=== PATIENT | female | born 1945 | race Caucasian/White ===

== ENCOUNTER 2018-05-24 12:15 | Outpatient (REF) | payer MEDICARE, MEDICAID, SELFPAY | END 2018-05-24 12:35 | LOC: NCHCN 12:15 | PROVIDERS: PCP Family Medicine; Visit Provider Family Medicine | DX: N39.0 Urinary tract infection, site not specified (principal); Z87.440 Personal history of urinary (tract) infections | CPT/HCPCS: 87077; 87086; 87186 ==

== ENCOUNTER 2019-02-25 11:23 | Inpatient (IN) | payer MEDICARE, MEDICAID, SELFPAY ==
[2019-02-25] VITALS (53 sets, daily range): BP systolic 83–141; BP diastolic 48–88; PULSE 73–101; RESP 7–30; TEMP 36.5–37.4; O2SAT 90–100
--- NOTE | 2019-02-25 11:27 | ED.GENADUL_ITS ---
Discharge Plan Discharge Details Chief Complaint: GenMedical Admit Date/Time: 02/27/19 15:43 Admit Provider: Jules Rodriguez Attending Provider: Jules Rodriguez Primary Care Provider: Mercedez Vazquez ED Provider: Wilma Mendoza Discharge Instructions Activity:: Activity as Tolerated Activity:: Activity as Tolerated Equipment/Supplies:: No Equipment Needed Diet:: Pureed & Thickened - Same diet as prior to hospitalization Discharge Orders Discharge Orders: Discharge Order (Routine); Ordered 02/28/19 Ordered By: Ger Martino Discharge Data Discharge Date/Time-TO BE ENTERED AT DEPARTURE: 02/25/19 19:01 Medical Decision Making Patient is a 72-year-old 1-year-old female with a history of bipolar, cognitive delay, dysphagia, anxiety, presenting today accompanied by her caregiver who has known her for the past 4 years. She brought in via EMS for chief complaint of angioedema. EMS was contacted around 4:00 this morning at which time the caregivers report the swelling was greater than it is now. However, EMS thought the she does not appear swollen. EMS was then turned out again with the same complaint. The caregiver at this time says that the overall swelling is reported to be down slightly but has been status quo since she is been with the patient at around 630 this morning. She been maintaining her airway. She is drooling but this is baseline for the patient. She typically has a tongue was able to be in her mouth and typically is able to eat normally. Labs reviewed. Patient has mild leukocytosis with a white count of 12.27. CT was reviewed by radiologist: FINDINGS: 1 stable . Patient is here for CT 1year continue with there is marked prominence of the tongue and there is some evidence of the tonsillar and adenoidal tissue. Image quality is degraded by patient's dentition. There is no definite evidence of an abscess. The retropharyngeal soft tissues appear intact. The facial bones are unremarkable. A small retention cyst is noted in the floor of the right maxillary antrum. The paranasal sinuses appear otherwise unremarkable. Degenerative changes involving the cervical spine are identified. IMPRESSION: There is diffuse swelling of the tongue and prominence of the tonsillar and adenoidal tissue is demonstrated. Allowing for poor image quality no abscess or mass is identified. Patient was given Benadryl and Solu-Medrol. Feel that time is come down slightly. She continues to drool. The patient presents with her angioedema and is unclear as to the source of this, admission is appropriate. Will consult with hospitalist. Consulted with the hospitalist who came to evaluate the patient. She is concerned for the patient staying here as the patient may require intubation should her symptoms worsen. Physically will not be able to perform his intubation here and patient need may need tracheostomy. Advised patient should be admitted to an institution that has ENT available. As the olanzapine will need to be stopped, so felt that the patient would benefit from psychiatry admission. I consulted with [facility] who advised I do not have any bed availability for this patient at this time. Then called [facility], awaiting callback. Consulted with Dr. Jacky Mendoza at [facility] who advised that the patient seems to be improving, he does not feel the transfer to their facility is appropriate at this time. We discussed the patient's medication list and he does not feel that these are likely the offending agent. That they were unlikely. He did advise sending if C4 level with concern for possible complement issue. It did advise that we continue with the Benadryl and the steroid taper. This patient is unable to be admitted here and is unable to be safely discharged home, will continue to monitor in the ER with plan to discuss the case once again with Dr. Mendoza in 4 hours. If at that time, improved or symptoms worsen, she will be transferred to their facility. Patient has been in the department 2 hours telemetry has again come down slightly. Has less of a rounded shape. However, continues to protrude out of mild and patient has persistent drooling. Had a lengthy discussion with the patient's guardian. We discussed risk/benefits of transferring the patient. She does not wish to transfer the patient at this point. She feels that with her cognitive delay, this would greatly exacerbate her symptoms are made worse in her current condition. She is requesting patient remain here. We discussed that in the, as have been pointed by hospitalist prior, we do not have availability of ENT, psychiatry, allergy testing or other potentially needed areas of specialty. Patient is already a DNR and the guardian prefers to make her DNI as well. She does not feel that if the patient was to need intubation or potentially a tracheostomy, that the patient will be able to tolerate these procedures well and again, would likely worsen her underlying etiologies. At this point, she would like to continue to treat her angioedema as we have been. Again, the patient continues to appear slightly improved. The guardian is aware that there remains a potential that she could begin to decline and that we do not have specialty care here to be able to treat this worsening condition. She continues to want admission here. Seems to be fully aware of the risk. Patient is DNR/DNI. Consult with Dr. Rodriguez who agrees to admission for continued monitoring of the patient's angioedema. Advised re-dosing the patient with the Solu-Medrol at 60 mg every 6. This order has been placed. We will continue to hold off on the Benadryl as the patient continues to be sleepy and I am concerned that this may put her at risk for increased respiratory depression. HPI General Mode of arrival: EMS . Date/Time Provider Initiated Documentation: 02/25/19 11:27 . Limitations to Documentation: altered mental status (hx of cognitive impairment) . Information obtained by: family (home care provider and cousin who is DPOA) and RN notes reviewed . HPI Narrative: Patient is 73-year-old female with history of cognitive impairment, bipolar, brought in via EMS with chief complaint of tongue swelling. Home care provider reports that this is first noted around 4:00 this morning by previous care provider. He denies any recent change in medications. No new friends there were. Reports that yesterday she was in a manic state which involved her largely laying around the house. The report that she is unable to get any substances that she may have ingested. They do not believe that she is single any trauma or bit her tongue. She is never had an episode like this before. Patient is not on any LOLLY inhibitors or high risk medications to angioedema. They have not noted having any difficulty breathing. If not tried to give her anything p.o. since the onset of her symptoms. Have not noted any rash, wheezing or stridor. They do report that she snores at baseline but this is unchanged. Related Data Home Medications Medication Instructions Recorded Confirmed cholecalciferol (vitamin D3) 400 unit PO BID 11/01/13 02/25/19 [Vitamin D3] lorazepam 4 mg PO HS 11/01/13 02/25/19 multivitamin [Daily Multi-Vitamin] 1 ea PO DAILY 11/01/13 02/25/19 omega 9-vwb-bls-fish oil 3 cap PO BID 11/01/13 02/25/19 polyethylene glycol 3350 [GlycoLax] 1 bot PERFUSION BID 11/01/13 02/25/19 Diafoods Thick-It 1 ea PO 6X/DAY 01/02/17 02/25/19 famotidine 20 mg PO DAILY 01/02/17 02/25/19 calcium polycarbophil [FiberCon] 625 mg PO DAILY 02/25/19 02/25/19 prednisone 10 mg PO DAILY #10 tab 02/28/19 Previous Rx's Medication Instructions Recorded prednisone 10 mg PO DAILY #10 tab 02/28/19 Allergies Allergy/AdvReac Type Severity Reaction Status Date / Time carbamazepine [From Tegretol] Allergy Unverified 02/25/19 11:29 divalproex sodium Allergy Unverified 02/25/19 11:29 [From Depakote] haloperidol [From Haldol] Allergy Unverified 02/25/19 11:29 lithium Allergy Unverified 02/25/19 11:29 Penicillins Allergy Unverified 02/25/19 11:29 verapamil Allergy Unverified 02/25/19 11:29 Review of Systems Review of Systems ROS Unobtainable: Unobtainable due to mental condition [facility] Medical History Aspiration pneumonia Bipolar disorder Cognitive developmental delay Dysphagia Dysuria Hx of recurrent urinary tract infection Seborrheic keratosis Surgical History egd, general endotracheal anesthesia (01/06/17) Social History Smoking/Tobacco Use Status: Never Drug use: Never Exam Const General: cooperative, comfortable, no acute distress and well developed Nutritional Appearance: average body habitus and well nourished Orientation: alert, awake and not oriented x3 (Patient is nonverbal) [facility] Head: normal to inspection, normocephalic and atraumatic Ears: hearing grossly normal bilaterally, external ears normal and TM's normal bilaterally General nose exam: external nose normal and nares normal Face and sinus: normal facial exam, sinuses nontender and face symmetric Mouth: oral mucosae normal, lip normal, oropharynx normal, moist mucous membranes and tongue abnormal (Patient has angioedema with tongue protruding from her mouth.) Teeth and gingiva: dentition normal (Do not see any evidence infection.) Throat: posterior oropharynx abnormal (Unable to see secondary to tongue swelling) Eyes General: appearance normal, both eyes and all related structures Neck Neck: full ROM, no lymphadenopathy and no meningeal signs Neck images: 1. Erythematous streak. No induration, fluctuance, no evidence of pain with pa lpation Resp Effort & Inspection: normal respiratory effort, able to speak in complete sentences and no respiratory distress Auscultation: clear to auscultation bilaterally, no rales, no rhonchi and no wheezes Cardio Rate: regular rate Rhythm: regular rhythm Heart Sounds: S1 normal and S2 normal Skin General skin exam: no rashes or lesions noted Neuro General: alert and awake Motor: tone not normal throughout (Muscle wasting is noted particular in lower extremities) Extrem General: no joint enlargement, abnormal gait (Patient is unable to ambulate at baseline), no calf tenderness bilaterally, no edema and muscle atrophy
--- NOTE | 2019-02-25 11:29 | DI.CT_ITS ---
EXAM: CT FACIAL W CLINICAL HISTORY: right sided streaking, angioedema, patient nonverbal. TECHNIQUE: Facial bone CT was carried out with an intravenous injection of 100 cc of Omnipaque 350. COMPARISON: No exams were available for comparison FINDINGS: There is marked prominence of the tongue and there is some evidence of the tonsillar and adenoidal ti ssue. Image quality is degraded by patient's dentition. There is no definite evidence of an abscess . The retropharyngeal soft tissues appear intact. The facial bones are unremarkable. A small retent ion cyst is noted in the floor of the right maxillary antrum. The paranasal sinuses appear otherwise unremarkable. Degenerative changes involving the cervical spine are identified. IMPRESSION: There is diffuse swelling of the tongue and prominence of the tonsillar and adenoidal tissue is demon strated. Allowing for poor image quality no abscess or mass is identified.
[2019-02-25] MEDS: Normal Saline 1,000 ML 1000 ML IV (11:56)
[2019-02-25] MEDS: diphenhydrAMINE 50 MG/ML VIAL 25 MG IVP (12:06)
[2019-02-25 12:07] LABS: Abs Immature Grans 0.03 k/cumm (0.0-0.09); Absolute Basophil Count 0.01 k/cumm (0.0-0.2); Absolute Lymphocyte Count 0.99 k/cumm (1.2-3.4); Absolute Monocyte Count 0.74 k/cumm (0.11-0.7); Basophils % 0.1; Eosinophils % 0.8; HCT 41.9 % (36.0-46.0); HGB 13.8 g/dL (12.0-15.5); Immature Grans % 0.2; Lymphocytes % 8.1; Mean Corp. HGB Concentration 32.9 g/dL (32.0-36.0); Mean Corpuscular Hemoglobin 32.2 pg (27.0-33.0); Mean Corpuscular Volume 97.7 fL (80-95); Mean Platelet Volume 11.2 fL (8.0-11.0); Neutrophils % 84.8; Platelet Count 293 x1000/uL (130-400); RBC 4.29 m/cumm (4.00-5.20); White Blood Cell Count 12.27 k/cumm (4.4-10.8)
[2019-02-25] MEDS: methylPREDNISolone SUCC 125 MG VIAL IVP (12:08)
[2019-02-25] MEDS: Normal Saline Flush 10 ML SYR IVP ×2 (12:11→21:26)
[2019-02-25 12:28] LABS: ALT 27 U/L (14-59); AST 44 U/L (15-37); Albumin 3.3 g/dL (3.4-5.0); Alkaline Phosphatase 145 U/L (46-116); Anion Gap 11.2 mmol/L (3-11); BUN 27 mg/dL (7-18); CO2 23.8 mmol/L (21.0-32.0); Chloride 105 mmol/L (98-107); Glucose 119 mg/dL (70-100); Potassium 4.2 mmol/L (3.5-5.1); Sodium 140 mmol/L (136-145); Total Protein 7.5 g/dL (6.4-8.2)
[2019-02-25 12:32] LABS: Lactate 1.1 mmol/L (0.6-1.4)
[2019-02-25 12:52] LABS: Calcium 9.5 mg/dL (8.5-10.1)
--- NOTE | 2019-02-25 19:09 | W.PM.HP.N ---
Date of service: 02/25/19 Time of Service: 19:09 Assessment and Plan Assessment and plan (1) Angioedema: Status: Acute Assessment and plan: I will give one time dose of epinephrine 0.3 mg and continue w/ benadryl at lower dose and continue w/ iv H2 blockers as well as iv corticosteroids. we will keep racemic epinephrine aerosol available should she develope stridor. she remains at high risk for airway compromise. The ER gave me the impression that she was acceptable for admission to med/surg; she should be more closely followed in the ICU. However, her cousin, Pinky Gómez, did indicate to me that she would not want any heroics done to save her in the event of an airway emergency, i.e. no cricothyrotomy or tracheostomy. Qualifiers: Encounter type: initial encounter Qualified Code(s): T78.3XXA - Angioneurotic edema, initial encounter History of Present Illness History of Present Illness Chief Complaint: angioedema Narrative: 73-year-old female who is cognitively impaired due to developmental delay at who lives in an assisted living center in [facility]. This morning the assisted living nursing home assistant administrator called the patient's guardian who is also the patient's cousin, Pinky Gómez, to notify her that around 430 this morning the patient developed acute swelling of her tongue. EMS was called to evaluate the patient but they felt that there was no acute emergency and that this did not necessitate transport to the hospital. However by 8 AM her tongue continue to swell to the point that was protruding out of her mouth and Verenice Platt, nursing home assistant administrator at [place] called the patient's cousin again to report that there is no improvement and in fact there was worsening of her edema and so they called the patient's primary care provider at [facility]. By 830 a physician from [facility] came to evaluate the patient and called EMS. Upon arrival to the emergency department she was noted to have gross edema of her tongue to the point is protruding out of her mouth and the patient was drooling and unable to handle her oral secretions. There was no mention of stridor or airway compromise and in fact it was felt that she was maintaining her airway. ER personnel did routine labs as well as a CT scan of the face. CT scan of the face showed diffuse swelling the tongue and prominence of the tonsillar and adenoidal tissue but poor quality image with no evidence for abscess or mass. JAKE Yuen in the emergency room spoke with Dr.Yelena Metcalf, day hospitalist who came down the emergency room and evaluate the patient and recommend that the patient be transferred to tertiary care center where ENT would be available. Concern is that if the patient had a compromised airway and needed emergent airway control the patient would not be able to be intubated and would need an emergent cricothyrotomy and subsequent tracheotomy. JAKE Yuen made phone calls at [facility] who had no beds and could not accept the patient in a call to [facility] where Dr. Jacky Mendoza was consulted and by the time the patient's case was discussed the patient's tongue edema was improving. He did not feel the need for transfer at this time. He reviewed the patient's medication list and did not feel likely that her current medications were offending agents. He did recommend a C4 complement level be sent off. Treatment the emergency department included Solu-Medrol 125 mg IV along with a normal saline bolus and thousand milliliters as well as diphenhydramine 25 mg IV. The diphenhydramine made the patient excessively sleepy. Further diphenhydramine was discontinued in the emergency department. She was given 1 additional dose of Solu-Medrol 60 mg IV before being admitted to the medical/surgical floor. The patient's guardian and cousin discussed the case with Wilma Grove and indicated that the patient would only want to be kept comfortable and that they would not want to pursue a tracheotomy and therefore the patient's cousin requested that the patient be kept here at [facility]. Review of Systems Review of Systems ROS Unobtainable: Unobtainable due to mental condition [facility] Medical History Aspiration pneumonia Bipolar disorder Cognitive developmental delay Dysphagia Dysuria Hx of recurrent urinary tract infection Seborrheic keratosis Surgical History egd, general endotracheal anesthesia (01/06/17) Social History Smoking/Tobacco Use Status: Never Drug use: Never Meds Home Medications and Allergies Home Medications Medication Instructions Recorded Confirmed Type cholecalciferol (vitamin D3) 400 unit PO BID 11/01/13 02/25/19 History [Vitamin D3] lorazepam 4 mg PO HS 11/01/13 02/25/19 History multivitamin [Daily Multi-Vitamin] 1 ea PO DAILY 11/01/13 02/25/19 History omega 0-wgx-qye-fish oil 3 cap PO BID 11/01/13 02/25/19 History polyethylene glycol 3350 [GlycoLax] 1 bot PERFUSION BID 11/01/13 02/25/19 History sulfamethoxazole-trimethoprim 1 ea PO DAILY 11/01/13 02/25/19 History [Bactrim] Diafoods Thick-It 1 ea PO 6X/DAY 01/02/17 02/25/19 History famotidine 20 mg PO DAILY 01/02/17 02/25/19 History olanzapine 10 mg PO DAILY 01/06/17 02/25/19 History sucralfate [Carafate Suspension] 1 gm PO TID #900 ml 01/06/17 02/25/19 Rx calcium polycarbophil [FiberCon] 625 mg PO DAILY 02/25/19 02/25/19 History pantoprazole 20 mg PO DAILY 02/25/19 02/25/19 History sulfamethoxazole-trimethoprim 1 tab PO DAILY 02/25/19 02/25/19 History [Bactrim] Allergies Allergy/AdvReac Type Severity Reaction Status Date / Time carbamazepine [From Tegretol] Allergy Unverified 02/25/19 11:29 divalproex sodium Allergy Unverified 02/25/19 11:29 [From Depakote] haloperidol [From Haldol] Allergy Unverified 02/25/19 11:29 lithium Allergy Unverified 02/25/19 11:29 Penicillins Allergy Unverified 02/25/19 11:29 verapamil Allergy Unverified 02/25/19 11:29 Exam Const General: other (Developmentally delayed adult who at her baseline is nonverbal) Orientation: alert, awake and not oriented x3 Limitations: behavioral limitations and language barrier [facility] Head: normal to inspection, normocephalic and atraumatic Face and sinus: edema bilaterally upper lip and lower lip Mouth: drooling, lip abnormal and tongue abnormal elevated and edematous (protruding out of mouth to her incisors) Throat: other (Malampatti class 4, unable to visualize posterior pharynx) Eyes General: dysmorphic (wide set eyes) Neck Neck: normal visual inspection, full ROM, no lymphadenopathy, no meningeal signs, trachea midline, supple and no JVD Thyroid: thyroid normal Lymphatic: no lymphadenopathy noted Resp Effort & Inspection: normal respiratory effort, no audible wheezes and no stridor Auscultation: clear to auscultation bilaterally Cardio Jugular venous pressure: no JVD Palpation: normal PMI Rate: regular rate Rhythm: regular rhythm Heart Sounds: S1 normal and S2 normal GI Inspection: normal to inspection Palpation: soft, no hepatosplenomegaly and nontender Percussion: normal to percussion Auscultation: normal bowel sounds Skin Rashes: rashes noted right cheek borders irregular and color red Extrem General: normal to inspection, full ROM, normal capillary refill, no clubbing, cyanosis or edema, no pedal edema and no calf tenderness Psych Appearance: disheveled Mental Status: other (nonverbal, looks around room but does not focus attention) Speech and Movement: other (aphasic) Mood: anxious mood and other (nonverbal, looks around room but does not focus attention) Results Imaging Additional studies: Patient Name: JOSEPH SIMON #: [id number]: ER Ordering Provider: Wilma Mendoza #: [id number]: REG ER Primary Care Provider: Alfred Vazquez of Exam: 02/25/19Sex: F : 7Age: 73 Exam(s) a CT:CT facial w EXAM: CT FACIAL W CLINICAL HISTORY: right sided streaking, angioedema, patient nonverbal. TECHNIQUE: Facial bone CT was carried out with an intravenous injection of 100 cc of Omnipaque 350. COMPARISON: No exams were available for comparison FINDINGS: There is marked prominence of the tongue and there is some evidence of the tonsillar and adenoidal tissue. Image quality is degraded by patient's dentition. There is no definite evidence of an abscess. The retropharyngeal soft tissues appear intact. The facial bones are unremarkable. A small retention cyst is noted in the floor of the right maxillary antrum. The paranasal sinuses appear otherwise unremarkable. Degenerative changes involving the cervical spine are identified. IMPRESSION: There is diffuse swelling of the tongue and prominence of the tonsillar and adenoidal tissue is demonstrated. Allowing for poor image quality no abscess or mass is identified. Labs Result diagrams: 02/25/19 11:45 02/25/19 11:45 Labs: Laboratory Results - last 24 hr 02/25/19 02/25/19 02/25/19 11:45 11:45 12:28 WBC 12.27 H RBC 4.29 Hgb 13.8 Hct 41.9 MCV 97.7 H MCH 32.2 MCHC 32.9 RDW 14.0 Plt Count 293 MPV 11.2 H Immature Gran % 0.2 Neutrophils % 84.8 Lymphocytes % 8.1 Monocytes % 6.0 Eosinophils % 0.8 Basophils % 0.1 Absolute Neutrophils 10.40 H Absolute Lymphocytes 0.99 L Absolute Monocytes 0.74 H Absolute Eosinophils 0.10 Absolute Basophils 0.01 Sodium 140 Potassium 4.2 Chloride 105 Carbon Dioxide 23.8 Anion Gap 11.2 H BUN 27 H Creatinine 0.80 Estimated GFR/1.73 m2 >= 60.00 Glucose 119 H Lactate 1.1 Calcium 9.5 Total Bilirubin 1.0 AST 44 H ALT 27 Alkaline Phosphatase 145 H Total Protein 7.5 Albumin 3.3 L Last Vital Signs Temp 37.0 C 02/25/19 11:24 Pulse 85 02/25/19 18:31 Resp 18 02/25/19 18:31 BP 102/68 02/25/19 18:31 Pulse Ox 94 L 02/25/19 18:31
[2019-02-25] MEDS: diphenhydrAMINE 50 MG/ML VIAL 12.5 MG IVP (21:25)
[2019-02-25] MEDS: EPINEPHrine 0.3 MG KIT IM (21:33)
[2019-02-25] MEDS: FAMOTIDINE 20 MG/50 ML BAG 200 MG IVPB (23:07)
[2019-02-25] MEDS: Enoxaparin 40 MG/0.4 ML SYR SC (23:07)
[2019-02-25] MEDS: Normal Saline 1,000 ML 50 ML IV (23:30)
[2019-02-25] MEDS: methylPREDNISolone SUCC 125 MG VIAL 60 MG IVP (23:33)
[2019-02-26] VITALS (29 sets, daily range): BP systolic 91–119; BP diastolic 45–98; PULSE 66–99; RESP 14–26; TEMP 36.6–37.1; O2SAT 90–99
[2019-02-26] MEDS: methylPREDNISolone SUCC 125 MG VIAL 60 MG IVP ×4 (06:22→23:24)
[2019-02-26 06:57] LABS: Abs Immature Grans 0.04 k/cumm (0.0-0.09); Absolute Lymphocyte Count 0.68 k/cumm (1.2-3.4); Absolute Monocyte Count 0.24 k/cumm (0.11-0.7); Absolute Neutrophil Count 12.44 k/cumm (1.2-6.7); HCT 42.7 % (36.0-46.0); HGB 13.6 g/dL (12.0-15.5); Immature Grans % 0.3; Lymphocytes % 5.1; Mean Corp. HGB Concentration 31.9 g/dL (32.0-36.0); Mean Corpuscular Hemoglobin 31.6 pg (27.0-33.0); Mean Corpuscular Volume 99.3 fL (80-95); Monocytes % 1.8; Neutrophils % 92.8; Platelet Count 267 x1000/uL (130-400); RBC Distribution Width 14.2 % (11.7-14.6)
[2019-02-26 07:06] LABS: Anion Gap 10.8 mmol/L (3-11); BUN 30 mg/dL (7-18); CO2 23.2 mmol/L (21.0-32.0); CREATININE 0.79 mg/dL (0.55-1.02); Calcium 9.3 mg/dL (8.5-10.1); Chloride 111 mmol/L (98-107); Glucose 146 mg/dL (70-100); Potassium 3.8 mmol/L (3.5-5.1); Sodium 145 mmol/L (136-145)
[2019-02-26] MEDS: diphenhydrAMINE 50 MG/ML VIAL 12.5 MG IVP (07:55)
[2019-02-26] MEDS: FAMOTIDINE 20 MG/50 ML BAG 200 MG IVPB ×2 (07:56→20:59)
[2019-02-26] MEDS: Normal Saline Flush 10 ML SYR IVP ×3 (07:56→23:25)
[2019-02-26] MEDS: POTASSIUM CHLORIDE 20 MEQ/100 ML BAG 50 MEQ IVPB (11:13)
--- NOTE | 2019-02-26 11:31 | PHARADMIT ---
Addendum entered by Christiano Mac III 02/27/19 14:30: Pharmacy Note Subjective Angioedema stablizing, patient dehydrated (Na-150) IV fluids started. Objective BP-98/51 Na-150 Other Labs WNL Assessment Zyprexa on hold as possible culprit for ADR as is the Bactrim. to taper steroids. Plan Plan was to discharge home once dehydration resolved. Original Note: Admission Pharmacy Clinical Review ANGIOEDEMA, (may be ADR to Bactrim or Zyprexa)) Code Status DNR/DNI Current Weight Wgt-65.1 kg Renally Cleared and Narrow Therapeutic Index Meds CrCl~60.38 mL/min Meds-OK QTc Value / Action Taken QTc-410 (na) BP Control, Fever BP-117/98 Tmax-36.6C Electrolytes reviewed Na-145 K+3.8 DVT Prophylaxis Lovenox Opiate Usage / Scheduled Bowel Regimen Ordered No No (NPO Swolen tongue) Plt/SCr for Heparin / Enoxaparin P:ts-267 SCr-0.79 INR for Warfarin na H/H stable, WBC/Bands H&H- 13.6/42.7 WBC-13.4 Antibiotic appropriateness none Cultures and Sensitivities none Surgical ABX d/c within 24 hr na DM control / Insulin Dosing BG-146 Heart Failure (Check EF%) (LOLLY's, B-Block, Diuretics) NA IV to PO Switch No Home Meds Reviewed Yes Home Meds Not Ordered [place]-3, Carafate, Miralax, Protonix, Zyprexa, M-Vites Lotazepam, Vit-D, FiberCon Bactrim Comments
--- NOTE | 2019-02-26 12:09 | PGE_ITS ---
Date of Service Date of service: 02/26/19 Time of Service: 12:09 Assessment and Plan Assessment and plan (1) Angioedema: Status: Acute Assessment and plan: Appears to be stabilizing and potentially mildly improved. - Patient has received a dose of epinephrine, and will be continued on combination H1 and H2 boogie, and IV steroids. - Also consider racemic nebulized epinephrine on a as needed basis. - Unsure of the etiology for patient's symptoms, but potentially drug-induced in the setting of olanzapine, Bactrim, and PPI use. All of these medications remain on hold for the time being. - Patient has a history of aspiration pneumonia in the past - continue aggressive suctioning of secretions and aspiration precautions aggressively. - The case was apparently discussed with patient's guardian (her cousin) in the ED. Decision was made that in case of worsening symptoms the patient would only want to be kept comfortable, and that they would not want to pursue a tracheotomy or any invasive form of intervention. She remains DNR/DNI. Qualifiers: Encounter type: initial encounter Qualified Code(s): T78.3XXA - Angioneurotic edema, initial encounter (2) Cognitive developmental delay: Status: None Assessment and plan: History of cognitive and developmental delay, as well as a diagnosis of bipolar disorder, chronically maintained on daily olanzapine and nightly lorazepam. ?Olanzapine remains on hold as potential culprit for angioedema. ?We will reinitiate nightly benzo therapy to avoid withdrawal symptoms in elderly woman on chronic lorazepam. (3) Hx of recurrent urinary tract infection: Status: None Assessment and plan: On chronic prophylactic TMP?SMX, currently on hold as above. (4) DVT prophylaxis: Status: Acute Assessment and plan: SC enoxaparin. (5) Advance directive on file: Status: Acute Assessment and plan: DNR/DNI. Subjective Subjective Interval history since last seen: 73-year-old woman with a prior history of developmental delay since , admitted from [facility] Emergency Department on 02/25 with a diagnosis of Angioedema. Ms. Chris has a prior history of Cognitive impairment and Developmental Delay since , living currently in an assisted care residence in [facility]. She was noted very early on the morning of admission to have developed and acutely swollen tongue, and per instructions from her guardian EMS was called. However, as her symptoms were not at that time severe she was not transported to the ED. However, by 8am her tongue continued to swell, protruding from her mouth, and with concurrent evidence of 'drooling' she was evaluated by a physician from [facility], and transported acutely to the ED via EMS. Initial evaluation revealed gross swelling of the tongue, and inability to control her secretions. The patient's airway however was not compromised. Subsequent CT showed diffuse swelling of the tongue, and prominence of the tonsillar and adenoidal tissue, without mention of mass or abscess. Initially attempted to transfer patient due to the preference of the hospitalist, Ms. Chris was not accepted in transfer at [facility], and patient's family did not feel that she should be sent elsewhere. She was treated in the ED with high dose steroids, IVFs, and antihystamine therapy, and referred for admission for further evaluation and treatment. This morning Ms. Chris is reportedly improved, but with continued and significant tongue swelling, with protuberance of the tongue from the oral cavity. No overnight events reported. Remains afebrile. Exam Narrative Exam Narrative: General: Patient is awake, baseline nonverbal status noted. Neck: Supple HEENT: Noted edema of the upper and lower lips, with noted mild drooling of saliva, and an edematous tongue protruding out of the mouth. CV: Regular, nontachycardic, S1S2, No rubs, murmurs, or gallops. Pulmonary: Clear to auscultation bilaterally, no crackles, wheezing, or rhonchi Abdomen: + Bowel Sounds, soft, nontender, nondistended Vascular: No lower extremity edema Psych: Normal mood and affect. Objective Objective Clinical Data: Abnormal lab results 02/25/19 02/26/19 02/26/19 Range/Units 11:45 06:18 06:18 WBC 13.40 H (4.4-10.8) k/cumm MCV 99.3 H (80-95) fL MCHC 31.9 L (32.0-36.0) g/dL Absolute Neutrophils 12.44 H (1.2-6.7) k/cumm Absolute Lymphocytes 0.68 L (1.2-3.4) k/cumm Chloride 111 H (98-107) mmol/L Anion Gap 11.2 H (3-11) mmol/L BUN 27 H 30 H (7-18) mg/dL Glucose 119 H 146 H (70-100) mg/dL AST 44 H (15-37) U/L Alkaline Phosphatase 145 H (46-116) U/L Albumin 3.3 L (3.4-5.0) g/dL Vital Signs Temperature 36.6 C 02/26/19 08:00 Temperature Source Temporal Artery Scan 02/26/19 08:00 Pulse 85 02/26/19 08:00 Pulse Rhythm Regular 02/25/19 19:21 Pulse 84 02/26/19 08:00 Respiratory Rate 19 02/26/19 08:00 Respiratory Effort Non-Labored 02/26/19 08:00 Respiratory Depth Normal 02/26/19 08:00 Respiratory Pattern Normal 02/26/19 08:00 Blood Pressure 117/98 H 02/26/19 08:00 Blood Pressure Mean 103 02/26/19 08:00 Blood Pressure Position Right Lateral 02/26/19 08:00 Pulse Oximetry 98 02/26/19 08:00 Oxygen Delivery Method Room Air 02/26/19 08:00 Oxygen Flow Rate 0 02/26/19 08:00 Pain Level 0 02/26/19 03:15 Intake & Output 02/25/19 02/26/19 02/26/19 23:59 11:59 23:59 Intake Total 50 / 50 50 / 50 Balance 50 / 50 50 / 50 Weight 66.9 kg 65.1 kg Intake: IV 50 / 50 50 / 50 Other: Comment pt incontinent of urine Diaper on. Stool Occult Blood Negative Stool Size Moderate Stool Characteristics Formed Brown Voiding Methods Diaper Diaper Laboratory Results WBC 13.40 k/cumm (4.4-10.8) H 02/26/19 06:18 RBC 4.30 m/cumm (4.00-5.20) 02/26/19 06:18 Hgb 13.6 g/dL (12.0-15.5) 02/26/19 06:18 Hct 42.7 % (36.0-46.0) 02/26/19 06:18 MCV 99.3 fL (80-95) H 02/26/19 06:18 MCH 31.6 pg (27.0-33.0) 02/26/19 06:18 MCHC 31.9 g/dL (32.0-36.0) L 02/26/19 06:18 RDW 14.2 % (11.7-14.6) 02/26/19 06:18 Plt Count 267 x1000/uL (130-400) 02/26/19 06:18 MPV 11.0 fL (8.0-11.0) 02/26/19 06:18 Immature Gran % 0.3 02/26/19 06:18 Neutrophils % 92.8 02/26/19 06:18 Lymphocytes % 5.1 02/26/19 06:18 Monocytes % 1.8 02/26/19 06:18 Eosinophils % 0.0 02/26/19 06:18 Basophils % 0.0 02/26/19 06:18 Absolute Neutrophils 12.44 k/cumm (1.2-6.7) H 02/26/19 06:18 Absolute Lymphocytes 0.68 k/cumm (1.2-3.4) L 02/26/19 06:18 Absolute Monocytes 0.24 k/cumm (0.11-0.7) 02/26/19 06:18 Absolute Eosinophils 0.00 k/cumm (0.0-0.7) 02/26/19 06:18 Absolute Basophils 0.00 k/cumm (0.0-0.2) 02/26/19 06:18 Sodium 145 mmol/L (136-145) 02/26/19 06:18 Potassium 3.8 mmol/L (3.5-5.1) 02/26/19 06:18 Chloride 111 mmol/L (98-107) H 02/26/19 06:18 Carbon Dioxide 23.2 mmol/L (21.0-32.0) 02/26/19 06:18 Anion Gap 10.8 mmol/L (3-11) 02/26/19 06:18 BUN 30 mg/dL (7-18) H 02/26/19 06:18 Creatinine 0.79 mg/dL (0.55-1.02) 02/26/19 06:18 Estimated GFR/1.73 m2 >= 60.00 (mL/min/1.73m2) 02/26/19 06:18 Glucose 146 mg/dL (70-100) H 02/26/19 06:18 Lactate 1.1 mmol/L (0.6-1.4) 02/25/19 12:28 Calcium 9.3 mg/dL (8.5-10.1) 02/26/19 06:18 Total Bilirubin 1.0 mg/dL (0.2-1.0) 02/25/19 11:45 AST 44 U/L (15-37) H 02/25/19 11:45 ALT 27 U/L (14-59) 02/25/19 11:45 Alkaline Phosphatase 145 U/L (46-116) H 02/25/19 11:45 Total Protein 7.5 g/dL (6.4-8.2) 02/25/19 11:45 Albumin 3.3 g/dL (3.4-5.0) L 02/25/19 11:45
--- NOTE | 2019-02-26 16:37 | PDOC.CMIN ---
- If Service Date Differs Date of service: 02/26/19 Time of Service: 16:37 Care Management Initial Assess REASON FOR HOSPITALIZATION:: Angioedema PAST MEDICAL HISTORY/PAST SURGICAL HISTORY:: Medical History : Aspiration pneumonia. Bipolar disorder. Cognitive developmental delay. Dysphagia. Dysuria. Hx of recurrent urinary tract infection. Seborrheic keratosis. Surgical History: egd, general endotracheal anesthesia (01/06/17) PREVIOUS FUNCTIONAL STATUS/SOCIAL/FAMILY SUPPORTS:: Laisha lives at [facility] [place] [facility], in [place], [place] She is cognitively impaired and has a guardian who is also her cousin ( Pinky Gómez [phone]). Laisha requires total care. She is able to get OOB with max 2 assist, and sit in a chair. In addition to Pinky, Laisha has several other cousins. Pinky's son Aakash Gómez is co-guardian. All of her cousins are very supportive. CURRENT FUNCTIONAL STATUS:: Laisha was lying in bed when CM met with her. She appeared comfortable and her tongue was not visibly protruding at the time, indicating improvement snce admission. Laisha is non-verbal so no discussion with her was possible. Laisha's guardian Pinky came to see her in the fternoon and CM met with her to learn a bit more about Laisha and her needs and abilities. Pinky stated that the care at [facility] is excellent and that all of Toms need are being met. She did strate that she does not want any invasive procedures or a tracheostomy since Laisha would not understand and it would frighten her. The goal of her care is to be kept comfortable. ADVANCE DIRECTIVES:: none Has patient been provided with information about the portal?: No Did the patient sign up for the portal?: No CODE STATUS:: DNR/DNI INSURANCE COVERAGE / FINANCIAL ISSUES:: Medicare. Medicaid CURRENT HOME/COMMUNITY SERVICES/EQUIPMENT:: Lives in an assisted living center PRIMARY CARE PHYSICIAN:: Mercedez Vazquez PATIENT/FAMILY EDUCATION NEEDS:: discharge plan, limitations, follow up plan, Ask Me Three. TRANSPORTATION:: Laisha will be transported by amulance, coordinated by CM, when discharged PLAN:: Laisha will return to [place] when medically ready. She will transport via ambulance coordinated by CM. CM will continue to support patient, and family.
[2019-02-26] MEDS: Enoxaparin 40 MG/0.4 ML SYR SC (20:59)
[2019-02-26] MEDS: diphenhydrAMINE 50 MG/ML VIAL 25 MG IVP (21:09)
[2019-02-26] MEDS: LORazepam 2 MG/ML VIAL IVP (21:09)
[2019-02-27] VITALS (32 sets, daily range): BP systolic 76–122; BP diastolic 44–71; PULSE 57–89; RESP 13–23; TEMP 36.5–37.6; O2SAT 91–98
[2019-02-27] MEDS: Normal Saline 1,000 ML 75 ML IV (02:18)
[2019-02-27] MEDS: methylPREDNISolone SUCC 125 MG VIAL 60 MG IVP ×2 (05:32→12:01)
[2019-02-27 06:50] LABS: Abs Immature Grans 0.04 k/cumm (0.0-0.09); Absolute Lymphocyte Count 0.77 k/cumm (1.2-3.4); Absolute Monocyte Count 0.73 k/cumm (0.11-0.7); HCT 38.9 % (36.0-46.0); HGB 12.3 g/dL (12.0-15.5); Immature Grans % 0.3; Lymphocytes % 6.3; Mean Corp. HGB Concentration 31.6 g/dL (32.0-36.0); Mean Corpuscular Hemoglobin 31.9 pg (27.0-33.0); Mean Corpuscular Volume 100.8 fL (80-95); Mean Platelet Volume 10.8 fL (8.0-11.0); Neutrophils % 87.4; Platelet Count 248 x1000/uL (130-400); RBC 3.86 m/cumm (4.00-5.20); RBC Distribution Width 14.4 % (11.7-14.6); White Blood Cell Count 12.17 k/cumm (4.4-10.8)
[2019-02-27 06:54] LABS: Absolute Neutrophil Count 10.64 k/cumm (1.2-6.7)
[2019-02-27 07:03] LABS: Anion Gap 9.9 mmol/L (3-11); BUN 44 mg/dL (7-18); CO2 23.1 mmol/L (21.0-32.0); CREATININE 0.79 mg/dL (0.55-1.02); Calcium 9.1 mg/dL (8.5-10.1); Chloride 117 mmol/L (98-107); Glucose 165 mg/dL (70-100); Magnesium 2.3 mg/dL (1.8-2.4); Potassium 4.2 mmol/L (3.5-5.1); Sodium 150 mmol/L (136-145)
[2019-02-27] MEDS: FAMOTIDINE 20 MG/50 ML BAG 200 MG IVPB (07:54)
[2019-02-27] MEDS: Normal Saline 1,000 ML 150 ML IV (12:23)
[2019-02-27 12:39] LABS: Sodium 150 mmol/L (136-145)
[2019-02-27] MEDS: SODIUM CHLORIDE 0.45% 1,000 ML 150 ML IV ×2 (14:50→21:02)
--- NOTE | 2019-02-27 15:23 | W.PM.PROGNOT ---
Date of Service Date of service: 02/27/19 Time of Service: 15:27 Assessment and Plan Assessment and plan (1) Angioedema: Status: Acute Assessment and plan: Appears to be stabilizing, with initial symptoms resolved. - Patient received dose of epinephrine, and was maintained on combination H1 and H2 boogie, and IV steroids. Plan is for change to oral steroids with a 5-7 day taper. - Unsure of the etiology for patient's symptoms, but potentially drug-induced in the setting of olanzapine, Bactrim, Sucralfate, and PPI use. All of these medications remain on hold for the time being. - Patient has a history of aspiration pneumonia in the past - care included aggressive suctioning of secretions and aspiration precautions - remains afebrile and non-hypoxic. - The case was apparently discussed with patient's guardian (her cousin) in the ED. Decision was made that in case of worsening symptoms the patient would only want to be kept comfortable, and that they would not want to pursue a tracheotomy or any invasive form of intervention. She remains DNR/DNI. Qualifiers: Encounter type: initial encounter Qualified Code(s): T78.3XXA - Angioneurotic edema, initial encounter (2) Hypernatremia: Status: Acute Assessment and plan: Potentially in the setting of dehydration as she was NPO and without IVFs the majority of the day yesterday. Sodium unchanged with increased rate of Normal saline. Will change to 1/2 NS, and repeat Na later this afternoon. (3) Cognitive developmental delay: Status: None Assessment and plan: History of cognitive and developmental delay, as well as a diagnosis of bipolar disorder, chronically maintained on daily olanzapine and nightly lorazepam. ?Olanzapine remains on hold as potential culprit for angioedema. ?Continue nightly benzo therapy to avoid withdrawal symptoms in elderly woman on chronic lorazepam. (4) Hx of recurrent urinary tract infection: Status: None Assessment and plan: On chronic prophylactic TMP?SMX, currently on hold as above. (5) DVT prophylaxis: Status: Acute Assessment and plan: SC enoxaparin. (6) Advance directive on file: Status: Acute Assessment and plan: DNR/DNI. Subjective Subjective Interval history since last seen: 73-year-old woman with a prior history of developmental delay since , admitted from [facility] Emergency Department on 02/25 with a diagnosis of Angioedema. Ms. Chris has a prior history of Cognitive impairment and Developmental Delay since , living currently in an assisted care residence in [facility]. She was noted very early on the morning of admission to have developed and acutely swollen tongue, and per instructions from her guardian EMS was called. However, as her symptoms were not at that time severe she was not transported to the ED. However, by 8am her tongue continued to swell, protruding from her mouth, and with concurrent evidence of 'drooling' she was evaluated by a physician from [facility], and transported acutely to the ED via EMS. Initial evaluation revealed gross swelling of the tongue, and inability to control her secretions. The patient's airway however was not compromised. Subsequent CT showed diffuse swelling of the tongue, and prominence of the tonsillar and adenoidal tissue, without mention of mass or abscess. Initially attempted to transfer patient due to the preference of the hospitalist, Ms. Chris was not accepted in transfer at [facility] [place], and patient's family did not feel that she should be sent elsewhere. She was treated in the ED with high dose steroids, IVFs, and antihystamine therapy, and referred for admission for further evaluation and treatment. This morning Ms. Chris is improved and reportedly at baseline. Initial tongue swelling has resolved, and tongue is no longer protuberant from the oral cavity. Labwork indicates mild hypernatremia this morning. No overnight events reported. Remains afebrile. Exam Narrative Exam Narrative: General: Patient is awake, baseline nonverbal status noted. Neck: Supple HEENT: Previously noted edema of the lips and mouth resolved. CV: Regular, nontachycardic, S1S2, No rubs, murmurs, or gallops. Pulmonary: Clear to auscultation bilaterally, no crackles, wheezing, or rhonchi Abdomen: + Bowel Sounds, soft, nontender, nondistended Vascular: No lower extremity edema Psych: Normal mood and affect. Objective Objective Clinical Data: Abnormal lab results 02/27/19 02/27/19 02/27/19 Range/Units 06:25 06:25 11:59 WBC 12.17 H (4.4-10.8) k/cumm RBC 3.86 L (4.00-5.20) m/cumm MCV 100.8 H (80-95) fL MCHC 31.6 L (32.0-36.0) g/dL Absolute Neutrophils 10.64 H (1.2-6.7) k/cumm Absolute Lymphocytes 0.77 L (1.2-3.4) k/cumm Absolute Monocytes 0.73 H (0.11-0.7) k/cumm Sodium 150 H 150 H (136-145) mmol/L Chloride 117 H (98-107) mmol/L BUN 44 H D (7-18) mg/dL Glucose 165 H (70-100) mg/dL Vital Signs Temperature 36.6 C 02/27/19 13:03 Temperature Source Temporal Artery Scan 02/27/19 13:03 Pulse 81 02/27/19 13:00 Pulse Rhythm Regular 02/25/19 19:21 Pulse 85 02/27/19 13:00 Respiratory Rate 19 02/27/19 13:00 Respiratory Effort Non-Labored 02/27/19 13:47 Respiratory Depth Normal 02/27/19 13:47 Respiratory Pattern Normal 02/27/19 13:47 Blood Pressure 98/51 L 02/27/19 13:00 Blood Pressure Mean 63 02/27/19 13:00 Blood Pressure Position Supine 02/27/19 13:03 Pulse Oximetry 96 02/27/19 13:00 Oxygen Delivery Method Room Air 02/27/19 13:03 Oxygen Flow Rate 0 02/27/19 13:03 Pain Level 0 02/27/19 13:03 Intake & Output 02/26/19 02/27/19 02/27/19 23:59 11:59 23:59 Intake Total 150 / 250 721.25 / 1605.00 883.75 / 1605.00 Balance 150 / 250 721.25 / 1605.00 883.75 / 1605.00 Intake: IV 150 / 250 481.25 / 1365.00 883.75 / 1365.00 Oral 240 / 240 Other: Urine Odor Normal Normal Comment new tab brief placed. Brief worn. Brief worn. Voiding Methods Incontinent Incontinent Laboratory Results WBC 12.17 k/cumm (4.4-10.8) H 02/27/19 06:25 RBC 3.86 m/cumm (4.00-5.20) L 02/27/19 06:25 Hgb 12.3 g/dL (12.0-15.5) 02/27/19 06:25 Hct 38.9 % (36.0-46.0) 02/27/19 06:25 MCV 100.8 fL (80-95) H 02/27/19 06:25 MCH 31.9 pg (27.0-33.0) 02/27/19 06:25 MCHC 31.6 g/dL (32.0-36.0) L 02/27/19 06:25 RDW 14.4 % (11.7-14.6) 02/27/19 06:25 Plt Count 248 x1000/uL (130-400) 02/27/19 06:25 MPV 10.8 fL (8.0-11.0) 02/27/19 06:25 Immature Gran % 0.3 02/27/19 06:25 Neutrophils % 87.4 02/27/19 06:25 Lymphocytes % 6.3 02/27/19 06:25 Monocytes % 6.0 02/27/19 06:25 Eosinophils % 0.0 02/27/19 06:25 Basophils % 0.0 02/27/19 06:25 Absolute Neutrophils 10.64 k/cumm (1.2-6.7) H 02/27/19 06:25 Absolute Lymphocytes 0.77 k/cumm (1.2-3.4) L 02/27/19 06:25 Absolute Monocytes 0.73 k/cumm (0.11-0.7) H 02/27/19 06:25 Absolute Eosinophils 0.00 k/cumm (0.0-0.7) 02/27/19 06:25 Absolute Basophils 0.00 k/cumm (0.0-0.2) 02/27/19 06:25 Sodium 150 mmol/L (136-145) H 02/27/19 11:59 Potassium 4.2 mmol/L (3.5-5.1) 02/27/19 06:25 Chloride 117 mmol/L (98-107) H 02/27/19 06:25 Carbon Dioxide 23.1 mmol/L (21.0-32.0) 02/27/19 06:25 Anion Gap 9.9 mmol/L (3-11) 02/27/19 06:25 BUN 44 mg/dL (7-18) H D 02/27/19 06:25 Creatinine 0.79 mg/dL (0.55-1.02) 02/27/19 06:25 Estimated GFR/1.73 m2 >= 60.00 (mL/min/1.73m2) 02/27/19 06:25 Glucose 165 mg/dL (70-100) H 02/27/19 06:25 Lactate 1.1 mmol/L (0.6-1.4) 02/25/19 12:28 Calcium 9.1 mg/dL (8.5-10.1) 02/27/19 06:25 Magnesium 2.3 mg/dL (1.8-2.4) 02/27/19 06:25 Total Bilirubin 1.0 mg/dL (0.2-1.0) 02/25/19 11:45 AST 44 U/L (15-37) H 02/25/19 11:45 ALT 27 U/L (14-59) 02/25/19 11:45 Alkaline Phosphatase 145 U/L (46-116) H 02/25/19 11:45 Total Protein 7.5 g/dL (6.4-8.2) 02/25/19 11:45 Albumin 3.3 g/dL (3.4-5.0) L 02/25/19 11:45
--- NOTE | 2019-02-27 16:01 | CMPROGNOTE_ITS ---
- If Service Date Differs Date of service: 02/27/19 Time of Service: 16:01 Care Management Progress Note S/O: Camilla was sleeping while sitting up in a chair when CM came to visit. Per nursing, her tongue swelling has resolved and she is eating well. Her sodium level has been persistently elevated so she will not be discharged until tomorrow. A: Laisha is a 73 year old female admitted on 02/25/19 with angioedema P Laisha will return to [place] when medically ready. She will transport via ambulance coordinated by CM. CM will continue to support patient, and family
[2019-02-27 17:07] LABS: Anion Gap 8.8 mmol/L (3-11); BUN 39 mg/dL (7-18); CO2 23.2 mmol/L (21.0-32.0); Calcium 8.9 mg/dL (8.5-10.1); Chloride 117 mmol/L (98-107); Glucose 241 mg/dL (70-100); Potassium 4.3 mmol/L (3.5-5.1); Sodium 149 mmol/L (136-145)
[2019-02-27] MEDS: predniSONE 20 MG TAB 40 MG PO (17:10)
[2019-02-27] MEDS: Enoxaparin 40 MG/0.4 ML SYR SC (21:01)
[2019-02-27] MEDS: LORazepam 1 MG TAB 4 MG PO (21:07)
[2019-02-27] MEDS: diphenhydrAMINE 50 MG/ML VIAL 25 MG IVP (22:35)
[2019-02-27] MEDS: Normal Saline Flush 10 ML SYR IVP (22:36)
[2019-02-27] MEDS: LORazepam 2 MG/ML VIAL 1 MG IVP (23:40)
[2019-02-28] VITALS (7 sets, daily range): BP systolic 96–124; BP diastolic 45–92; PULSE 47–98; RESP 18–35; TEMP 36.8–36.9; O2SAT 91–99
[2019-02-28] MEDS: Melatonin 3 MG TAB 9 MG PO (00:20)
[2019-02-28] MEDS: LORazepam 2 MG/ML VIAL 1 MG IVP ×3 (00:52→09:48)
[2019-02-28] MEDS: Acetaminophen 650 MG SUPP PR (02:46)
[2019-02-28] MEDS: SODIUM CHLORIDE 0.45% 1,000 ML 150 ML IV (04:07)
[2019-02-28 07:08] LABS: Abs Immature Grans 0.02 k/cumm (0.0-0.09); Absolute Lymphocyte Count 0.66 k/cumm (1.2-3.4); Absolute Monocyte Count 0.75 k/cumm (0.11-0.7); Absolute Neutrophil Count 8.35 k/cumm (1.2-6.7); HCT 35.2 % (36.0-46.0); HGB 11.2 g/dL (12.0-15.5); Immature Grans % 0.2; Lymphocytes % 6.7; Mean Corp. HGB Concentration 31.8 g/dL (32.0-36.0); Mean Corpuscular Hemoglobin 32.2 pg (27.0-33.0); Mean Corpuscular Volume 101.1 fL (80-95); Mean Platelet Volume 11.3 fL (8.0-11.0); Monocytes % 7.7; Neutrophils % 85.4; Platelet Count 230 x1000/uL (130-400); RBC 3.48 m/cumm (4.00-5.20); RBC Distribution Width 14.5 % (11.7-14.6); White Blood Cell Count 9.78 k/cumm (4.4-10.8)
[2019-02-28 07:14] LABS: Anion Gap 7.9 mmol/L (3-11); BUN 30 mg/dL (7-18); CO2 26.1 mmol/L (21.0-32.0); CREATININE 0.75 mg/dL (0.55-1.02); Chloride 113 mmol/L (98-107); Glucose 130 mg/dL (70-100); Potassium 3.9 mmol/L (3.5-5.1); Sodium 147 mmol/L (136-145)
[2019-02-28] MEDS: Normal Saline Flush 10 ML SYR IVP ×3 (07:46→11:59)
[2019-02-28] MEDS: predniSONE 20 MG TAB 40 MG PO (09:35)
--- NOTE | 2019-02-28 10:42 | PDOC.CMPRO ---
- If Service Date Differs Date of service: 02/28/19 Time of Service: 10:42 Care Management Progress Note S/O: Laisha is lying in bed when CM meets with her. She appears restless but, Bonnie, the [place] corn crop supervisor present in the room reports that Laisha is calmer today than she normally is. Laisha is stabilizing and her tongue swelling has resolved. Anticipate no additional services needed upon discharge. CM continues to follow. A: Laisha is a 73 yo female admitted on 02/25/19 with angioedema. P: Laisha will return to [place] when medically cleared by provider. She will be transported by [facility] which will be coordinated by [facility].
[2019-02-28 11:37] LABS: C4 Complement 17 mg/dL (13-39)
[2019-02-28] MEDS: diphenhydrAMINE 50 MG/ML VIAL 25 MG IVP (11:58)
--- NOTE | 2019-02-28 13:07 | W.PM.DS.N ---
Date of service: 02/28/19 Time of Service: 13:07 DS: Diagnosis Discharge Diagnosis (1) Angioedema: Status: Acute (2) Hypernatremia: Status: Acute (3) Cognitive developmental delay: Status: None (4) Hx of recurrent urinary tract infection: Status: None (5) Advance directive on file: Status: Acute Discharge Plan Discharge Details Chief Complaint: GenMedical Reason For Visit: ANGIOEDEMA Admit Date/Time: 02/27/19 15:43 Admit Provider: Jules Rodriguez Attending Provider: Jules Rodriguez Primary Care Provider: Mercedez Vazquez [facility] Hospital Course: Chief Complaint: Tongue Swelling HPI: 73-year-old woman with a prior history of developmental delay since , admitted from [facility] Emergency Department on 02/25 with a diagnosis of Angioedema. Ms. Chris has a prior history of Cognitive impairment and Developmental Delay since , currently living in an assisted care residence / Custodial in [facility]. She is a patient at [facility]. She was noted very early on the morning of admission to have developed an acutely swollen tongue, and per instructions from her guardian EMS was called. However, as her symptoms were not at that time severe she was not transported to the ED. However, by 8am her tongue continued to swell, protruding from her mouth, and with concurrent evidence of 'drooling' she was evaluated by a physician from [facility], and transported acutely to the ED via EMS. Initial evaluation revealed gross swelling of the tongue, and inability to control her secretions. The patient's airway however was not compromised. Subsequent CT showed diffuse swelling of the tongue, and prominence of the tonsillar and adenoidal tissue, without mention of mass or abscess. Initially attempted to transfer patient due to the preference of the hospitalist, Ms. Chris was not accepted in transfer at [facility], and patient's family did not feel that she should be sent elsewhere. She was treated in the ED with high dose steroids, IVFs, and antihystamine therapy, and referred for admission for further evaluation and treatment. This morning Ms. Chris is improved and reportedly at baseline. Initial tongue swelling has resolved, and tongue is no longer protuberant from the oral cavity. Labwork indicates mild hypernatremia this morning, but improving. No overnight events reported. Remains afebrile. Hospital Course: (1) Angioedema: Appears to be stabilizing, with initial symptoms resolved. - Patient received dose of epinephrine, and was maintained on combination H1 and H2 boogie, and IV steroids. Plan is for change to oral steroids with a 5-7 day taper. - Unsure of the etiology for patient's symptoms, but potentially drug-induced in the setting of olanzapine, Bactrim, Sucralfate, and PPI use. All of these medications remain on hold at time of discharge. - Patient has a history of aspiration pneumonia in the past - care included aggressive suctioning of secretions and aspiration precautions - remains afebrile and non-hypoxic. - The case was apparently discussed with patient's guardian (her cousin) in the ED. Decision was made that in case of worsening symptoms she would only want to be kept comfortable, and that they would not want to pursue a tracheotomy or any invasive form of intervention. She remains DNR/DNI. (2) Hypernatremia: Potentially in the setting of dehydration as she was NPO and without IVFs the majority of the day of admission. Sodium has decreased slowly from 150 -->147 this morning. Consider monitoring, but suspect she will normalize soon back on her normal dietary intake. (3) Cognitive developmental delay: History of cognitive and developmental delay, as well as a diagnosis of bipolar disorder, chronically maintained on daily olanzapine and nightly lorazepam. ?Olanzapine remains on hold as potential culprit for angioedema. ?Continue nightly benzo therapy to avoid withdrawal symptoms in elderly woman on chronic lorazepam. (4) Hx of recurrent urinary tract infection: On chronic prophylactic TMP?SMX, currently on hold as above. Consider other agent (i.e. low dose Nitrofurantoin in the future if needed). (5) DVT prophylaxis: Was maintained on SC enoxaparin. (6) Advance directive on file: DNR/DNI. (7) Disposition: Discussed patient's case with her PCP, who will plan on seeing her in a home visit this week. Home Meds and New Rx's Prescriptions: New prednisone 10 mg tablet 10 mg PO DAILY Qty: 10 RF: 0 Continued lorazepam 1 MG tablet 4 mg PO HS RF: 0 cholecalciferol (vitamin D3) [Vitamin D3] 400 UNIT capsule 400 unit PO BID RF: 0 omega 8-eae-rxf-fish oil 1 EACH capsule 3 cap PO BID RF: 0 multivitamin [Daily Multi-Vitamin] 1 EACH tablet 1 ea PO DAILY RF: 0 polyethylene glycol 3350 [GlycoLax] 527 GM powder 1 bot Perfusion BID RF: 0 famotidine 40 MG tablet 20 mg PO DAILY RF: 0 Diafoods Thick-It 1 EACH powder in packet 1 ea PO 6X/DAY RF: 0 calcium polycarbophil [FiberCon] 625 mg Tablet 625 mg PO DAILY RF: 0 Discontinued sulfamethoxazole-trimethoprim [Bactrim] 1 EACH tablet 1 ea PO DAILY RF: 0 olanzapine 10 MG tablet 10 mg PO DAILY RF: 0 sucralfate [Carafate] 0.1 GM/ML suspension 1 gm PO TID Qty: 900 RF: 3 sulfamethoxazole-trimethoprim [Bactrim] 400-80 mg Tablet 1 tab PO DAILY RF: 0 pantoprazole 20 mg Tablet,Delayed Release (Dr/Ec) 20 mg PO DAILY RF: 0 Discharge Instructions Stand Alone Forms: Nursing Discharge Form Referrals: Yvonne Gaona [ NON-[facility] STAFF PHYSICIAN] - 03/10/19 1:00 pm (home visit) Activity:: Activity as Tolerated Activity:: Activity as Tolerated Equipment/Supplies:: No Equipment Needed Diet:: Pureed & Thickened - Same diet as prior to hospitalization DS: Summary Status at Discharge Functional status at discharge: bed bound Overall status at discharge: patient is back to baseline Mental Status: other Speech and Movement: other Mood: other Affect: other Exam Psych Mental Status: other Speech and Movement: other Mood: other Affect: other DS: Data Vitals/I&O Vitals and I&O: Vital Signs Temperature 36.8 C 02/28/19 10:00 Temperature Source Tympanic 02/28/19 10:00 Pulse 53 L 02/28/19 10:00 Pulse Rhythm Regular 02/28/19 12:04 Pulse 71 02/28/19 06:01 Respiratory Rate 20 02/28/19 10:00 Respiratory Effort 02/28/19 12:04 Respiratory Depth Normal 02/28/19 12:04 Respiratory Pattern Normal 02/28/19 12:04 Blood Pressure 107/62 02/28/19 10:00 Blood Pressure Mean 59 02/28/19 06:00 Blood Pressure Position Supine 02/27/19 18:58 Pulse Oximetry 96 02/28/19 10:00 Oxygen Delivery Method Room Air 02/28/19 10:00 Oxygen Flow Rate 0 02/28/19 10:00 Pain Level 0 02/28/19 07:15 Comment 02/28/19 10:00 Intake & Output 02/27/19 02/28/19 02/28/19 23:59 11:59 23:59 Intake Total 2053.75 / 2825.00 1480 / 1480 Balance 2053.75 / 2825.00 1480 / 1480 Intake: IV 1813.75 / 2345.00 1000 / 1000 Oral 240 / 480 480 / 480 Other: Urine Color Yellow Urine Odor Normal Comment Brief changed at this time. Voiding Methods Incontinent Diaper Diaper Incontinent Incontinent Data Completed and Pending Completed studies during hospitalization [Text1]: Exam(s) a CT:CT facial w EXAM: CT FACIAL W CLINICAL HISTORY: right sided streaking, angioedema, patient nonverbal. TECHNIQUE: Facial bone CT was carried out with an intravenous injection of 100 cc of Omnipaque 350. COMPARISON: No exams were available for comparison FINDINGS: There is marked prominence of the tongue and there is some evidence of the tonsillar and adenoidal tissue. Image quality is degraded by patient's dentition. There is no definite evidence of an abscess. The retropharyngeal soft tissues appear intact. The facial bones are unremarkable. A small retention cyst is noted in the floor of the right maxillary antrum. The paranasal sinuses appear otherwise unremarkable. Degenerative changes involving the cervical spine are identified. IMPRESSION: There is diffuse swelling of the tongue and prominence of the tonsillar and adenoidal tissue is demonstrated. Allowing for poor image quality no abscess or mass is identified. Labs on day of discharge: Labs from last 24 hours 02/28/19 02/28/19 02/27/19 06:38 06:38 16:45 WBC 9.78 RBC 3.48 L Hgb 11.2 L Hct 35.2 L MCV 101.1 H MCH 32.2 MCHC 31.8 L RDW 14.5 Plt Count 230 MPV 11.3 H Immature Gran % 0.2 Neutrophils % 85.4 Lymphocytes % 6.7 Monocytes % 7.7 Eosinophils % 0.0 Basophils % 0.0 Absolute Neutrophils 8.35 H Absolute Lymphocytes 0.66 L Absolute Monocytes 0.75 H Absolute Eosinophils 0.00 Absolute Basophils 0.00 Sodium 147 H 149 H Potassium 3.9 4.3 Chloride 113 H 117 H Carbon Dioxide 26.1 23.2 Anion Gap 7.9 8.8 BUN 30 H D 39 H Creatinine 0.75 0.90 Estimated GFR/1.73 m2 >= 60.00 >= 60.00 Glucose 130 H D 241 H D Calcium 9.0 8.9 Magnesium 2.0 PFSH Medical History Aspiration pneumonia Bipolar disorder Cognitive developmental delay Dysphagia Dysuria Hx of recurrent urinary tract infection Seborrheic keratosis Surgical History egd, general endotracheal anesthesia (01/06/17) Social History Smoking/Tobacco Use Status: Never Drug use: Never
--- NOTE | 2019-02-28 15:45 | CMDISCH_ITS ---
- If Service Date Differs Date of service: 02/28/19 Time of Service: 15:45 LACE Index Scoring Tool - Questions: Length of Stay (in days): 3 Acuity (Admit via E.D.?): Yes E.D. Visits: 1 - Answers: Total Score: 7 Risk of Readmission: Low Risk Care Management Discharge Reason for Hospitalization: Angioedema Discharge Plan: [facility] She will follow up with her PCP as directed. Patient/Family Education Needs: Nursing will review discharge instructions with Laisha Nicole's group tester, re medications, follow-up appointments, and how to manage care at home. Services Needed at Discharge: Transportation ([facility])
[2019-03-01 20:22] LABS: TSH (W/Ref FT4) 0.16 uIU/mL (0.36-3.74)
[2019-03-01 20:24] LABS: Vitamin B12 634 pg/mL (193-986)
== END 2019-02-28 15:50 | disposition other institution (70) | DRG 916 ==
LOC: ER 14:37 → MS 19:25 → ICU 02-26 07:30 → MS 02-28 08:34 → ICU 02-28 11:53 → MS 03-07 14:07
PROVIDERS: Admitting Provider Internal Medicine; Emergency Provider Physician Assistant; PCP Family Medicine; Visit Provider Internal Medicine
DX: T78.3XXA Angioneurotic edema, initial encounter (principal); E87.0 Hyperosmolality and hypernatremia; F79 Unspecified intellectual disabilities; Z87.441 Personal history of nephrotic syndrome; Z79.2 Long term (current) use of antibiotics; Z66 Do not resuscitate; Z29.9 Encounter for prophylactic measures, unspecified
CPT/HCPCS: 36415; 80048; 80053; 99220; 99232; 99238; J1650; 70487; 82607; 83605; 83735; 84295; 84439; 84443; 85025; 86160; 99225; J0171; J1200; J2060; J2930; J3480; J7512

== ENCOUNTER 2019-06-03 09:13 | Emergency (ER) | payer MEDICARE, MEDICAID, SELFPAY ==
--- NOTE | 2019-06-03 09:13 | W.ED.GENAD ---
Discharge Plan Disposition Patient Disposition: HOME Condition: Stable Discharge Details Chief Complaint: Seizure Clinical Impression: Seizure Primary Care Provider: Yvonne Gaona ED Provider: Emi Bowen Home Meds and New Rx's Prescriptions: New levetiracetam [Keppra] 500 mg tablet 500 mg PO BID 14 Days Qty: 28 RF: 0 Continued lorazepam 1 MG tablet 4 mg PO HS RF: 0 cholecalciferol (vitamin D3) [Vitamin D3] 400 UNIT capsule 400 unit PO BID RF: 0 omega 6-fze-ztg-fish oil 1 EACH capsule 3 cap PO BID RF: 0 multivitamin [Daily Multi-Vitamin] 1 EACH tablet 1 ea PO DAILY RF: 0 polyethylene glycol 3350 [GlycoLax] 527 GM powder 1 bot Perfusion BID RF: 0 famotidine 40 MG tablet 20 mg PO DAILY RF: 0 Diafoods Thick-It 1 EACH powder in packet 1 ea PO 6X/DAY RF: 0 calcium polycarbophil [FiberCon] 625 mg Tablet 625 mg PO DAILY RF: 0 amantadine HCl 100 mg Tablet 100 mg PO TID RF: 0 Ensure Liquid 8 RF: 0 Discharge Instructions Instructions: Recurrent Seizures in Adults (ED) Additional Instructions: Drink plenty of fluids. Take the Keppra as directed. Follow-up with your primary care doctor in 1 week. Follow-up with neurology Dr. Dempsey for further evaluation of your seizures and medication management. Return to the emergency department with any worsening or new concerning symptoms. Referrals: Shellie Dempsey MD [ [facility] STAFF PHYSICIAN] - Discharge Data Discharge Physician: Emi Bowen Medical Decision Making 0925 -- 74-year-old female with a history of bipolar disorder, cognitive developmental delay, tardive dyskinesia presents for possible seizure at home today. Patient was started on amantadine for her tardive dyskinesia on April 22 and has had 2 seizures since starting this medication. It is thought per the psychiatrist and primary care doctor that the seizures are due to the amantadine so she is currently on a taper with plan to stop on June 10 and then start Ingrezza. Caregiver states that they were advised to go to the emergency room with any seizure lasting longer than 2 minutes. Caregiver states today that patient was in the shower when she had an approximate 5-minute seizure in which she outstretched her arms and legs and appeared 2 days off and become unresponsive. She was breathing. This is unlike her baseline as she is normally very restless with arms and legs contracted and head moving all over. Caregiver states that patient is now at her baseline. She denies any other new medications or recent illnesses. Vitals within normal limits. Patient appears very restless with babbling and making incomprehensible sounds which is her baseline per caregiver at bedside. She has no obvious evidence of trauma. Lungs clear. Abdomen nontender Mucous membranes significantly dry. Caregiver states she did not drink or eat much this morning. Will place an IV, give fluids, check screening labs and urinalysis and attempt to reach out to neurology. Last PCP note this week stated that we could consider starting possible Keppra. 1010 --labs reviewed and unremarkable. Discussed with Dr. Dempsey -would agree with 500 mg Keppra twice daily while weaning down amantadine. 1245 --pt given 2 separate doses of ativan 1mg and no decrease in restlessness. Will give 2mg ativan IM and reattempt to be able to send to CT. 1600 --eventually able to sedate patient after 50 mg of Ben[address]ryl IM. CT head negative. She was able to rest and relax and we were able to give an additional liter IV fluids. Urinalysis noted 20-50 WBCs and small leukocyte esterase. Case discussed with patient's PCP Gladys Harvey who was informed of the work-up and plan today. Recommends holding antibiotics as patient has no fever or leukocytosis and usually has colonization of her urine due to frequent straight catheterizations. Will follow-up on urine culture result. She is requesting an ionized calcium, parathyroid hormone and TSH with free T4 and she will follow-up on these results. Plan discussed with guardian and caregiver at bedside and they are in agreement. Patient was given a dose of Keppra here. Advised to follow-up with the PCP and neurology as outpatient. Patient placed on care management list to help arrange with neurology appointment. Usual and customary return precautions given prior to discharge. Medical Records Medical records reviewed: Yes I reviewed the patient's medical records. Imaging Data Radiologic Study: Radiologist's impression: CT HEAD WO CLINICAL HISTORY: SEIZURE, R/O MASS/TUMOR/BLEED TECHNIQUE: Noncontrast. COMPARISON: CT FACIAL W from 02/25/2019 FINDINGS: The exam is limited by patient motion. No intracranial hemorrhage, mass or infarct is seen. Ventricles are normal in size. The sinuses and mastoid air cells appear clear. IMPRESSION: Exam is limited by motion. No acute abnormality is seen. Lab Data Lab results reviewed: Yes I reviewed the patient's lab results. Labs: 06/03/19 16:22 Urine - Reflex from Ua Urine Culture - Pending Laboratory Tests Range/Units 06/03/19 06/03/19 06/03/19 10:00 10:00 16:22 WBC (4.4-10.8) k/cumm 8.15 RBC (4.00-5.20) m/cumm 4.22 Hgb (12.0-15.5) g/dL 13.1 Hct (36.0-46.0) % 42.4 MCV (80-95) fL 100.5 H MCH (27.0-33.0) pg 31.0 MCHC (32.0-36.0) g/dL 30.9 L RDW (11.7-14.6) % 14.4 Plt Count (130-400) x1000/uL 368 MPV (8.0-11.0) fL 10.2 Immature Gran % % 0.2 Neutrophils % 72.4 Lymphocytes % 15.8 Monocytes % 7.5 Eosinophils % 3.7 Basophils % 0.4 Absolute Neutrophils (1.2-6.7) k/cumm 5.90 Absolute Lymphocytes (1.2-3.4) k/cumm 1.29 Absolute Monocytes (0.11-0.7) k/cumm 0.61 Absolute Eosinophils (0.0-0.7) k/cumm 0.30 Absolute Basophils (0.0-0.2) k/cumm 0.03 Sodium (136-145) mmol/L 148 H Potassium (3.5-5.1) mmol/L 4.6 Chloride (98-107) mmol/L 113 H Carbon Dioxide (21.0-32.0) mmol/L 27.0 Anion Gap (3-11) mmol/L 8.0 BUN (7-18) mg/dL 21 H Creatinine (0.55-1.02) mg/dL 0.97 Estimated GFR/1.73 m2 (mL/min/1.73m2) 56.45 Glucose (74-106) mg/dL 109 H Calcium (8.5-10.1) mg/dL 10.3 H Total Bilirubin (0.2-1.0) mg/dL 0.5 AST (15-37) U/L 32 ALT (14-59) U/L 34 Alkaline Phosphatase (46-116) U/L 178 H Total Protein (6.4-8.2) g/dL 7.1 Albumin (3.4-5.0) g/dL 2.7 L Urine Color (Yellow) Yellow Urine Clarity (Clear) Clear Urine pH (5-8) 7.0 Ur Specific Napoleon (1.005-1.025) 1.025 Urine Protein (Negative) mg/dL Negative Urine Ketones (Negative) mg/dL Negative Urine Blood (Negative) Negative Urine Nitrite (Negative) Negative Urine Bilirubin (Negative) Negative Urine Urobilinogen (Up TO 0.2) EU/dL 0.2 Ur Leukocyte Esterase (Negative) Small H Urine RBC (0-2) HPF Negative Urine WBC (0-5) HPF 20-50 H Ur Epithelial Cells (Negative) HPF Negative Urine Crystals (Negative) HPF Negative Urine Bacteria (Negative) HPF Moderate Urine Casts (Negative) LPF Negative Urine Mucus (Negative) Negative Urine Other (Negative) Few renal Ur Culture Indicated? Yes Urine Glucose (Negative) mg/dL Negative ECG Data Attestation: I personally reviewed and interpreted this ECG (s) as follows: Interpretation: Rate of 95, sinus, no acute ST elevation or depression. Significant artifact. FL 130. QTc 442. QRS 94. HPI General Mode of arrival: ambulatory. Date/Time Provider Initiated Documentation: 06/03/19 09:40. Limitations to Documentation: no limitations. Information obtained by: patient. History of Present Illness 74 year old F presents to the emergency department with the chief complaint of Possible seizure, Patient started experiencing this hour(s) (Today) and it has been now resolved. No relieving factors improve symptom(s), No exacerbating factors reported . Patient notes no other symptoms.. Patient did receive the following treatments prior to arrival, none Related Data Home Medications Medication Instructions Recorded Confirmed cholecalciferol (vitamin D3) 400 unit PO BID 11/01/13 06/03/19 [Vitamin D3] lorazepam 4 mg PO HS 11/01/13 06/03/19 multivitamin [Daily Multi-Vitamin] 1 ea PO DAILY 11/01/13 06/03/19 omega 9-kzi-yev-fish oil 3 cap PO BID 11/01/13 06/03/19 polyethylene glycol 3350 [GlycoLax] 1 bot PERFUSION BID 11/01/13 06/03/19 Diafoods Thick-It 1 ea PO 6X/DAY 01/02/17 06/03/19 famotidine 20 mg PO DAILY 01/02/17 06/03/19 calcium polycarbophil [FiberCon] 625 mg PO DAILY 02/25/19 06/03/19 Ensure 8 06/03/19 amantadine HCl 100 mg PO TID 06/03/19 06/03/19 levetiracetam [Keppra] 500 mg PO BID 14 Days #28 tab 06/03/19 Previous Rx's Medication Instructions Recorded levetiracetam [Keppra] 500 mg PO BID 14 Days #28 tab 06/03/19 Allergies Allergy/AdvReac Type Severity Reaction Status Date / Time carbamazepine [From Tegretol] Allergy Unverified 06/03/19 12:46 divalproex sodium Allergy Unverified 06/03/19 12:46 [From Depakote] haloperidol [From Haldol] Allergy Unverified 06/03/19 12:46 lithium Allergy Unverified 06/03/19 12:46 omeprazole Allergy Unverified 06/03/19 12:46 Penicillins Allergy Unverified 06/03/19 12:46 verapamil Allergy Unverified 06/03/19 12:46 General HAKEEM: 2 Review of Systems Unobtainable due to mental condition [facility] Social History Smoking/Tobacco Use Status: Never Drug use: Never Exam Const General: cooperative, healthy appearing and no acute distress [facility] Head: normal to inspection Ears: hearing grossly normal bilaterally and external ears normal Face and sinus: normal facial exam Mouth: mucous membranes dry Eyes General: appearance normal, both eyes and all related structures Pupils: PERRL EOM: EOM intact bilaterally Neck Neck: normal visual inspection and No submandibular swelling Lymphatic: no lymphadenopathy noted Chest Chest: normal inspection of the chest and no tenderness Resp Effort & Inspection: normal respiratory effort and able to speak in complete sentences Auscultation: clear to auscultation bilaterally Cardio Rate: regular rate Rhythm: regular rhythm GI Inspection: normal to inspection Palpation: soft, not firm, not rigid and nontender Auscultation: normal bowel sounds Back/Spine/Pelvis Thoracic/Lumbar Spine: thoracic and lumbar spine normal to inspection Skin General skin exam: no rashes or lesions noted Neuro General: awake and moves all extremities Speech: abnormal speech (incomprehensible sounds, babbling at baseline) Motor: muscle tone normal throughout Extrem General: full ROM Other: Arms flexed at elbows and hands clenched at baseline. Hips and knees flexed and restless and fidgeting at baseline Psych Appearance: grossly normal Speech and Movement: restless
[2019-06-03 09:14] VITALS: BP 104/66; PULSE 90; RESP 20; TEMP 36.5; O2SAT 96
[2019-06-03 10:10] LABS: Abs Immature Grans 0.02 k/cumm (0.0-0.09); Absolute Basophil Count 0.03 k/cumm (0.0-0.2); Absolute Lymphocyte Count 1.29 k/cumm (1.2-3.4); Absolute Monocyte Count 0.61 k/cumm (0.11-0.7); Basophils % 0.4; Eosinophils % 3.7; HCT 42.4 % (36.0-46.0); HGB 13.1 g/dL (12.0-15.5); Immature Grans % 0.2 %; Lymphocytes % 15.8; Mean Corp. HGB Concentration 30.9 g/dL (32.0-36.0); Mean Corpuscular Volume 100.5 fL (80-95); Mean Platelet Volume 10.2 fL (8.0-11.0); Monocytes % 7.5; Neutrophils % 72.4; Platelet Count 368 x1000/uL (130-400); RBC 4.22 m/cumm (4.00-5.20); RBC Distribution Width 14.4 % (11.7-14.6); White Blood Cell Count 8.15 k/cumm (4.4-10.8)
[2019-06-03 10:18] LABS: ALT 34 U/L (14-59); AST 32 U/L (15-37); Albumin 2.7 g/dL (3.4-5.0); Alkaline Phosphatase 178 U/L (46-116); BUN 21 mg/dL (7-18); Bilirubin, Total 0.5 mg/dL (0.2-1.0); CREATININE 0.97 mg/dL (0.55-1.02); Calcium 10.3 mg/dL (8.5-10.1); Chloride 113 mmol/L (98-107); Estimated GFR 56.45 (mL/min/1.73m2); Glucose 109 mg/dL (74-106); Potassium 4.6 mmol/L (3.5-5.1); Sodium 148 mmol/L (136-145); Total Protein 7.1 g/dL (6.4-8.2)
[2019-06-03] MEDS: LORazepam 2 MG/ML VIAL 1 MG IVP ×2 (10:46→11:31)
[2019-06-03] MEDS: Normal Saline 1,000 ML 1000 ML IV ×2 (10:47→14:56)
[2019-06-03] MEDS: LORazepam 2 MG/ML VIAL IM (12:50)
[2019-06-03] MEDS: diphenhydrAMINE 50 MG/ML VIAL IM (13:36)
--- NOTE | 2019-06-03 13:55 | NUR.NOTE ---
senior copywriter attempted straight cath pt for UA with scant amount of urine, not enough for sample, returned. pt tolerated well. no distress noted. Nursing Note:
--- NOTE | 2019-06-03 14:10 | DI.CT_ITS ---
EXAM: CT HEAD WO CLINICAL HISTORY: SEIZURE, R/O MASS/TUMOR/BLEED TECHNIQUE: Noncontrast. COMPARISON: CT FACIAL W from 02/25/2019 FINDINGS: The exam is limited by patient motion. No intracranial hemorrhage, mass or infarct is seen. Ventricle s are normal in size. The sinuses and mastoid air cells appear clear. IMPRESSION: Exam is limited by motion. No acute abnormality is seen.
[2019-06-03 16:29] LABS: Bilirubin Negative (Negative); Blood Negative (Negative); Clarity Clear (Clear); Glucose Negative (Negative); Ketones Negative (Negative); Leukocyte Esterase Small (Negative); Nitrite Negative (Negative); Specific Gravity 1.025 (1.005-1.025); Urobilinogen 0.2 EU/dL (Up TO 0.2)
[2019-06-03 16:39] LABS: Bacteria Moderate HPF (Negative); C & S Indicated? Yes; Casts Negative LPF (Negative); Crystals Negative HPF (Negative); Epithelial Cells Negative HPF (Negative); Mucus Negative (Negative); Other Cells Few Renal (Negative); RBC Negative HPF (0-2); WBC 20-50 HPF (0-5)
--- NOTE | 2019-06-03 17:27 | NUR.NOTE ---
Referral faxed to Neurology-Dr. Garcia.Nursing Note:
[2019-06-03] MEDS: levETIRAcetam 500 MG in Normal Saline 100 ML 400 MG IVPB (17:29)
[2019-06-03 17:37] LABS: TSH (W/Ref FT4) 1.01 uIU/mL (0.36-3.74)
[2019-06-03 20:17] VITALS: BP 114/76; PULSE 78; RESP 18; TEMP 36.7; O2SAT 98
[2019-06-03 22:16] LABS: Ionized Calcium 1.22 mmol/L (1.12-1.32)
[2019-06-06 12:16] LABS: Parathyroid Hormone,Intact 62 pg/mL (19-88)
== END 2019-06-03 18:25 | disposition home or self-care (01) ==
PROVIDERS: Emergency Provider Physician Assistant; PCP Nurse Practitioner Family
DX: R56.9 Unspecified convulsions (principal); T42.8X5A Adverse effect of antiparkinsonism drugs and other central muscle-tone depressants, initial encounter; G24.01 Drug induced subacute dyskinesia
CPT/HCPCS: 36415; 80053; 87077; 93005; 96361; 96365; 96372; 96375; 96376; 99285; 70450; 81003; 81015; 82330; 83970; 84443; 85025; 87086; 87186; 93010; J1200; J1953; J2060

== ENCOUNTER 2019-07-14 09:31 | Emergency (ER) | payer MEDICARE, MEDICAID, SELFPAY ==
--- NOTE | 2019-07-14 09:30 | ED.GENADUL_ITS ---
Discharge Plan Disposition Patient Disposition: HOME Condition: Stable Discharge Details Chief Complaint: Orthopedic Clinical Impression: Fracture of distal end of humerus Primary Care Provider: Yvonne Gaona ED Provider: Emi Bowen Home Meds and New Rx's Prescriptions: New oxycodone 5 mg tablet 5 mg PO Q6H PRN (Reason: pain) Qty: 10 RF: 0 Continued cimetidine 200 mg tablet 200 mg PO DAILY RF: 0 Neosporin Plus PainRelief(adan) 3.5-500-10,000 bt-yltf-mmar/g ointment 1 applic TP BID-TID PRNRF: 0 tolnaftate [Tinactin] 1 % aerosol powder 1 spray TP DAILY RF: 0 menthol-zinc oxide Powder TP QID PRN RF: 0 carbamide peroxide [Debrox] 6.5 % drops 5 drp OT DAILY RF: 0 Pepto-Bismol Max St 525 mg/15 mL suspension 525 mg PO DIRECTED PRNRF: 0 Vicks Vaporub 4.7-1.2-2.6 % ointment 1 applic TP BID-QID PRNRF: 0 Maalox Maximum Strength 400-400-40 mg/5 mL suspension 5 ml PO QID PRNRF: 0 magnesium hydroxide [Milk of Magnesia] 400 mg/5 mL suspension 15 ml PO DAILY PRNRF: 0 docusate sodium 100 mg capsule 100 mg PO BID RF: 0 loperamide 2 mg tablet 2 mg PO QID PRNRF: 0 Preparation H 0.25-14-74.9 % ointment 1 applic CA BID-QID PRNRF: 0 Eucerin Cream 1 applic TP BID RF: 0 clotrimazole 1 % cream 1 applic TP BID RF: 0 starch (thickening) Powder PO RF: 0 ketoconazole 2 % cream 1 applic TP BID RF: 0 omega-3 fatty acids [Fish Oil Concentrate] 1,000 mg capsule 1,000 mg PO BID RF: 0 polyethylene glycol 3350 [GlycoLax] 17 gram/dose powder 17 gm PO DAILY RF: 0 cetirizine [All Day Allergy (cetirizine)] 10 mg tablet 5 mg PO DAILY PRNRF: 0 vitamin A and D Ointment 1 applic TP QHS PRNRF: 0 bacitracin zinc [Antibiotic (bacitracin zinc)] 500 unit/gram ointment 1 applic TP Q12H RF: 0 dextran 70-hypromellose Drops 1 drp OP BID RF: 0 bisacodyl 10 mg suppository 10 mg CA DAILY PRNRF: 0 acetaminophen [Tylenol] 325 mg tablet 650 mg PO Q4H PRNRF: 0 guaifenesin 100 mg/5 mL syrup 200 mg PO Q6H PRNRF: 0 (DME) underpads Pad See Rx Instructions .ROUTE .MEDSUPPLY Qty: 40 RF: 0 Ensure Liquid PO DAILY RF: 0 (DME) catheter 16 Fr misc See Rx Instructions .ROUTE .MEDSUPPLY Qty: 10 RF: 0 calamine-zinc oxide Lotion 1 applic TP 4-6XD PRNRF: 0 Cutter Natural Repellent2 5-2 % aerosol,spray TP PRNRF: 0 lorazepam 1 MG tablet 4 mg PO HS RF: 0 cholecalciferol (vitamin D3) [Vitamin D3] 400 UNIT capsule 400 unit PO BID RF: 0 Diafoods Thick-It 1 EACH powder in packet 1 ea PO 6X/DAY RF: 0 calcium polycarbophil [FiberCon] 625 mg Tablet 625 mg PO DAILY RF: 0 Ensure Liquid 8 RF: 0 multivitamin Tablet 1 tab PO DAILY RF: 0 Ingrezza 80 mg Capsule 80 mg PO DAILY RF: 0 cimetidine 200 mg Tablet 200 mg PO DAILY RF: 0 levetiracetam 500 mg Tablet 500 mg PO BID RF: 0 polyethylene glycol 3350 [GlycoLax] 17 gram/dose Powder 1 PO DAILY RF: 0 Discharge Instructions Instructions: Arm Fracture in Adults (ED) Additional Instructions: Rest, ice, and elevate the affected area as much as possible. Take Tylenol every 4 hours as needed and directed for pain. Take the oxycodone for pain not relieved with Tylenol as needed and directed - specifically when movement of the arm appears to cause the patient pain or she appears restless or uncomfortable. Call the orthopedics office tomorrow to schedule a follow-up appointment for reevaluation with Dr. Verma in the office next Thursday or Thursday. Return to the emergency department if you develop any worsening or new concerning symptoms. Referrals: Edwardo Verma MD [ [facility] STAFF PHYSICIAN] - Discharge Data Discharge Physician: Emi Bowen Medical Decision Making 74-year-old female with a history of cognitive developmental delay, nonverbal, bipolar disorder, seizures with a history of restlessness and frequent flailing of extremities presents with right elbow swelling and ecchymosis since last Thursday after suspected accidental blunt injury to right elbow. Caregiver states that patient has 24 hr supervision at home and she denies any recent fall or head injury. States patient has been at her neurological baseline and has ambulated since her elbow injury. She has been eating normally. She states patient had seen the primary care doctor 2 days ago for continued swelling and bruising since last Thursday and was told to continue to ice and rest. She took Tylenol this morning. She presents for slight worsening and persistent elbow swelling and bruising. There is a moderate amount of edema and healing ecchymosis noted to right elbow and extending proximally and distally. Distal pulses intact. Patient holds the right arm close to body with flexion of 90 degrees at right elbow. No other evidence of trauma on exam. No head trauma, chest, abdomen or other extremity trauma. Lungs clear and abdomen soft and nontender. Back normal to inspection. No spinal tenderness. Suspect fracture. Right elbow x-ray noted a comminuted posteriorly displaced proximal humerus fracture. Intra-articular space appears intact. Case discussed with Dr. Verma who recommended a CT of elbow and placement of a posterior long splint and f/u in office next Thursday or Thursday. CT noted displaced mildly impacted and comminuted fracture distal humerus. Patient was placed in a posterior long-arm splint with plenty of web roll at bony prominences and exterior covered w/ Coban. Sling placed. NV intact pre and post splint placement. Caregiver advised to call orthopedics tomorrow to schedule a follow-up appointment for Thursday or Thursday next week. A dose of oxycodone given here as well as prescription. Usual and customary return precautions given prior to discharge. Medical Records Medical records reviewed: Yes I reviewed the patient's medical records. Imaging Data Radiologic Study: Radiologist's impression: XR ELBOW RT COMPLETE INDICATION: hit R elbow, r/o acute fracture. COMPARISON: No exams were available for comparison TECHNIQUE: 2D digital imaging was performed. FINDINGS: Positioning was difficult due to patient's ability inability to cooperate. There is a fracture extending mainly transversely through the distal humeral metaphysis. There is approximately half shaft width of anterior displacement. There is no extension to the articular surface. The fracture margins appear somewhat blurred consistent with a subacute fracture. The proximal radius and ulna appear intact. IMPRESSION: Subacute appearing displaced fracture through the distal humeral metaphysis. CT UPPER EXTREMITY RT WO CLINICAL HISTORY: extending from distal humerus and full elbow TECHNIQUE: Noncontrast exam. The exam is limited by patient's in immobility and inability to cooperate. The elbow is held in flexion. There is patient motion. COMPARISON: XR ELBOW RT COMPLETE from 07/14/2019 FINDINGS: There is again noted to be a fracture extending transversely through the metaphyseal region of the distal humerus. The fracture appears subacute. There is no extension to the articular surface. There is some impaction at the fracture site. There is displacement of the epicondyles anteriorly with respect to the more proximal humerus. The proximal radius and ulna appear intact. There is no evidence of dislocation. There is some edema in the soft tissues. No focal fluid collection or hematoma is seen. IMPRESSION: Displaced, mildly impacted and comminuted fracture of the distal humeral metaphysis. HPI General Mode of arrival: wheelchair . Date/Time Provider Initiated Documentation: 07/14/19 09:34 . Limitations to Documentation: physical limitation and other (cognitive disability, nonverbal) . Information obtained by: family . History of Present Illness 74 year old F presents to the emergency department with the chief complaint of R elbow swelling and bruising, Quality is described as sharp, and is localized to the right and upper extremity (R elbow). Patient started experiencing this day(s) (6) and it has been constant. Cold therapy improves symptom(s), Movement worsens symptoms . Patient did receive the following treatments prior to arrival, cold therapy and other (tylenol) Related Data Home Medications Medication Instructions Recorded Confirmed cholecalciferol (vitamin D3) 400 unit PO BID 11/01/13 07/14/19 [Vitamin D3] lorazepam 4 mg PO HS 11/01/13 07/14/19 Diafoods Thick-It 1 ea PO 6X/DAY 01/02/17 07/14/19 calcium polycarbophil [FiberCon] 625 mg PO DAILY 02/25/19 07/14/19 Ensure 8 06/03/19 acetaminophen 325 mg tablet 650 mg PO Q4H PRN tab 06/08/19 07/14/19 aluminum-mag hydroxide-simethicone 5 ml PO QID PRN 06/08/19 07/14/19 400 mg-400 mg-40 mg/5 mL oral susp bacitracin zinc 500 unit/gram 1 applic TP Q12H 06/08/19 07/14/19 topical ointment bisacodyl 10 mg rectal suppository 10 mg CA DAILY PRN 06/08/19 07/14/19 bismuth subsalicylate 525 mg/15 mL 525 mg PO DIRECTED PRN ml 06/08/19 07/14/19 oral suspension calamine-zinc oxide 1 applic TP 4-6XD PRN 06/08/19 07/14/19 camphor 4.7 %-eucalyptus oil 1.2 1 applic TP BID-QID PRN 06/08/19 07/14/19 %-menthol 2.6 % topical ointment carbamide peroxide 6.5 % ear drops 5 drp OT DAILY 06/08/19 07/14/19 catheter 16 Fr #10 each 06/08/19 cetirizine 10 mg tablet 5 mg PO DAILY PRN 06/08/19 07/14/19 cimetidine 200 mg tablet 200 mg PO DAILY tab 06/08/19 07/14/19 clotrimazole 1 % topical cream 1 applic TP BID 06/08/19 07/14/19 dextran 70-hypromellose 1 drp OP BID ml 06/08/19 07/14/19 docusate sodium 100 mg capsule 100 mg PO BID 06/08/19 07/14/19 food supplemt, lactose-reduced ml PO DAILY ml 06/08/19 geraniol 5 %-soybean oil 2 % spray TP PRN 06/08/19 topical spray guaifenesin 100 mg/5 mL oral syrup 200 mg PO Q6H PRN 06/08/19 07/14/19 ketoconazole 2 % topical cream 1 applic TP BID 06/08/19 07/14/19 lanolin quvjscf-wm-k.pet-ceres 1 applic TP BID gm 06/08/19 07/14/19 loperamide 2 mg tablet 2 mg PO QID PRN tab 06/08/19 07/14/19 magnesium hydroxide 400 mg/5 mL 15 ml PO DAILY PRN ml 06/08/19 07/14/19 oral suspension menthol-zinc oxide powder TP QID PRN 06/08/19 fpjwd-wxhwj-rykhtye-pramoxine 3.5 1 applic TP BID-TID PRN 06/08/19 07/14/19 mg-500 unit-10,000 unit/g top oint omega-3 fatty acids 1,000 mg 1,000 mg PO BID 06/08/19 07/14/19 capsule phenylephrine 0.25 %-mineral oil 1 applic CA BID-QID PRN 06/08/19 07/14/19 14 %-petrolatm 74.9 % rectal ointment polyethylene glycol 3350 17 17 gm PO DAILY 06/08/19 07/14/19 gram/dose oral powder starch (thickening) powder PO 06/08/19 tolnaftate 1 % topical spray powder 1 spray TP DAILY 06/08/19 07/14/19 underpads #40 each 06/08/19 vitamin A and D 1 applic TP QHS PRN 06/08/19 07/14/19 Ingrezza 80 mg PO DAILY 07/14/19 07/14/19 cimetidine 200 mg PO DAILY 07/14/19 07/14/19 levetiracetam 500 mg PO BID 07/14/19 07/14/19 multivitamin 1 tab PO DAILY 07/14/19 07/14/19 oxycodone 5 mg PO Q6H PRN #10 tab 07/14/19 polyethylene glycol 3350 [GlycoLax] 1 PO DAILY 07/14/19 Previous Rx's Medication Instructions Recorded oxycodone 5 mg PO Q6H PRN #10 tab 07/14/19 Allergies Allergy/AdvReac Type Severity Reaction Status Date / Time carbamazepine [From Tegretol] Allergy Unverified 07/14/19 09:39 divalproex sodium Allergy Unverified 07/14/19 09:39 [From Depakote] haloperidol [From Haldol] Allergy Unverified 07/14/19 09:39 lithium Allergy Unverified 07/14/19 09:39 omeprazole Allergy Unverified 07/14/19 09:39 Penicillins Allergy Unverified 07/14/19 09:39 verapamil Allergy Unverified 07/14/19 09:39 General HAKEEM: 3 Review of Systems Unobtainable due to mental condition [facility] Medical History (Updated 07/14/19 @ 12:22 by Emi Bowen DO) Aspiration pneumonia Bipolar disorder Cognitive developmental delay Contracture of hand joint (Acute) Cough (Acute) Declining mobility (Acute) Decreased urination (Acute) Dysphagia Dysuria Hx of recurrent urinary tract infection Hypercalcemia (Acute) Rash, skin (Acute) Seborrheic keratosis Seizures (Acute) Tongue swelling (Acute) Urinary retention (Acute) Surgical History egd, general endotracheal anesthesia (01/06/17) Social History Smoking/Tobacco Use Status: Never Alcohol Intake: never Drug use: Never Substance use type: does not use Additional Social history: Pt non-verbal. Unable to assess. PT lives at [facility]. Exam Const General: cooperative and no acute distress Orientation: alert and awake HENMT Head: normal to inspection Ears: hearing grossly normal bilaterally and external ears normal General nose exam: external nose normal Face and sinus: normal facial exam Mouth: oral mucosae normal Teeth and gingiva: dentition normal Eyes General: appearance normal, both eyes and all related structures Eyelids: eyelids normal Pupils: PERRL EOM: EOM intact bilaterally Neck Neck: normal visual inspection Lymphatic: no lymphadenopathy noted Chest Chest: normal inspection of the chest and normal palpation of entire chest wall Resp Effort & Inspection: normal respiratory effort and able to speak in complete sentences Auscultation: clear to auscultation bilaterally Cardio Rate: regular rate Rhythm: regular rhythm GI Inspection: normal to inspection and no abdominal wall ecchymosis Palpation: soft, not firm, no guarding, no hepatosplenomegaly, no masses and nontender Auscultation: normal bowel sounds Back/Spine/Pelvis Cervical Spine: No cervical spinal tenderness Thoracic/Lumbar Spine: thoracic and lumbar spine normal to inspection, No thoracic spinal tenderness and No lumbar spinal tenderness Pelvis: no pain with anterior-posterior compression Skin General skin exam: no rashes or lesions noted Neuro General: alert and awake Motor: muscle tone normal throughout Extrem Shoulder/upper arm images: 1. Moderate edema R elbow and extending up distal humerus and down to proximal forearm. Greenish ecchymoses R elbow extending up arm and down to elbow. Psych Appearance: grossly normal Mental Status: mental status grossly normal Speech and Movement: speech and movement normal Affect: normal affect Thought Process: normal Procedures Orthopedic Splinting/Casting Injury #1: Side: right Upper Extremity Injury Location: upper arm Upper Extremity Immobilizer: sling/shoulder immobilizer and posterior splint (long arm)
[2019-07-14 09:33] VITALS: BP 113/68; PULSE 82; RESP 16; TEMP 36.6; O2SAT 97
--- NOTE | 2019-07-14 10:00 | DI.RAD_ITS ---
EXAM: XR ELBOW RT COMPLETE INDICATION: hit R elbow, r/o acute fracture. COMPARISON: No exams were available for comparison TECHNIQUE: 2D digital imaging was performed. FINDINGS: Positioning was difficult due to patient's ability inability to cooperate. There is a fracture exte nding mainly transversely through the distal humeral metaphysis. There is approximately half shaft w idth of anterior displacement. There is no extension to the articular surface. The fracture margins appear somewhat blurred consistent with a subacute fracture. The proximal radius and ulna appear in tact. IMPRESSION: Subacute appearing displaced fracture through the distal humeral metaphysis. DATA REPOSITORY: RADIATION DOSE DELIVERED:
[2019-07-14 10:45] VITALS: BP 100/62; PULSE 69; RESP 18; TEMP 37; O2SAT 99
--- NOTE | 2019-07-14 10:45 | DI.CT_ITS ---
EXAM: CT UPPER EXTREMITY RT WO CLINICAL HISTORY: extending from distal humerus and full elbow TECHNIQUE: Noncontrast exam. The exam is limited by patient's in immobility and inability to roderick ate. The elbow is held in flexion. There is patient motion. COMPARISON: XR ELBOW RT COMPLETE from 07/14/2019 FINDINGS: There is again noted to be a fracture extending transversely through the metaphyseal region of the d istal humerus. The fracture appears subacute. There is no extension to the articular surface. Ther e is some impaction at the fracture site. There is displacement of the epicondyles anteriorly with r espect to the more proximal humerus. The proximal radius and ulna appear intact. There is no eviden ce of dislocation. There is some edema in the soft tissues. No focal fluid collection or hematoma i s seen. IMPRESSION: Displaced, mildly impacted and comminuted fracture of the distal humeral metaphysis. -- EXAM: CT UPPER EXTREMITY RT WO CLINICAL HISTORY: extending from distal humerus and full elbow TECHNIQUE: Noncontrast exam. The exam is limited by patient's in immobility and inability to roderick ate. The elbow is held in flexion. There is patient motion. COMPARISON: XR ELBOW RT COMPLETE from 07/14/2019 FINDINGS: There is again noted to be a fracture extending transversely through the metaphyseal region of the d istal humerus. The fracture appears subacute. There is no extension to the articular surface. Ther e is some impaction at the fracture site. There is displacement of the epicondyles anteriorly with r espect to the more proximal humerus. The proximal radius and ulna appear intact. There is no eviden ce of dislocation. There is some edema in the soft tissues. No focal fluid collection or hematoma i s seen.
[2019-07-14] MEDS: oxyCODONE 5 MG TAB PO (12:07)
--- NOTE | 2019-07-14 12:27 | NUR.NOTE ---
Nursing Note: Splint applied to RUE by (Emi Bowen)
[2019-07-14 13:04] VITALS: BP 102/62; PULSE 66; RESP 20; TEMP 36.5; O2SAT 97
== END 2019-07-14 14:12 | disposition home or self-care (01) ==
PROVIDERS: Emergency Provider Physician Assistant; PCP Nurse Practitioner Family
DX: S42.491A Other displaced fracture of lower end of right humerus, initial encounter for closed fracture (principal); X58.XXXA Exposure to other specified factors, initial encounter
CPT/HCPCS: 29105; 99284; 73080; 73200; 99285

== ENCOUNTER 2019-07-20 15:29 | Outpatient (CLI) | payer MEDICARE, MEDICAID, SELFPAY ==
--- NOTE | 2019-07-20 14:58 | DI.RAD_ITS ---
EXAM: XR ELBOW RT LIMITED CLINICAL HISTORY: Follow up. TECHNIQUE: 2D digital imaging was performed. COMPARISON: XR ELBOW RT COMPLETE from 07/14/2019 FINDINGS: BONES: There is again seen a fracture of the distal humeral metaphysis. There is anterior dislocatio n of the distal fracture almost one shaft's width. Compared to the examination from 07/14/2019, there appears to be slight worsening of the dislocation. This may be due to patient positioning. No bony destructive lesion is seen. JOINTS: The elbow is normally aligned. There is a joint effusion present. SOFT TISSUE: Normal. A cast is in place. IMPRESSION: Distal humeral fracture. Slight worsening of the dislocation when compared to the prior examination. DATA REPOSITORY: RADIATION DOSE DELIVERED:
== END 2019-07-20 15:49 ==
PROVIDERS: PCP Nurse Practitioner Family; Referring Provider Nurse Practitioner Family; Visit Provider Student in an Organized Health Care Education/Training Program
DX: S42.491A Other displaced fracture of lower end of right humerus, initial encounter for closed fracture (principal); X58.XXXA Exposure to other specified factors, initial encounter
CPT/HCPCS: 99204; 99215; 73070

== ENCOUNTER 2019-07-25 13:05 | Inpatient (IN) | payer MEDICARE, MEDICAID, SELFPAY ==
[2019-07-25 13:12] VITALS: PULSE 77; RESP 18; TEMP 37.1; O2SAT 95
[2019-07-25 13:21] VITALS: RESP 18
--- NOTE | 2019-07-25 13:21 | ED.GENADUL_ITS ---
Discharge Plan Discharge Details Chief Complaint: GenMedical Admit Date/Time: 07/25/19 15:58 Admit Provider: Jeff Marie Attending Provider: Jeff Marie Primary Care Provider: Yvonne Gaona ED Provider: Wanda Tatum Discharge Data Discharge Date/Time-TO BE ENTERED AT DEPARTURE: 07/25/19 16:54 Medical Decision Making Laisha Alejandra is a 74-year-old woman with a history of cognitive impairment, bipolar disorder who presented to the emergency department with new weakness of the lower extremities and of her neck today. On exam patient is apparently at her baseline mental status. She has flaccid paralysis of bilateral lower extremities and does not support her head on her own. Concern for metabolic process versus Guillain-Deleon? versus other. Patient's guardian agrees to basic metabolic work-up, but states that she does not want further diagnostics. Labs reviewed, nondiagnostic. Patient does have UTI, however doubt that this accounts entirely for her symptoms today. I discussed patient presentation with Dr. Shellie Dempsey of neurology, who states differential Guillain-Deleon?, myasthenia, other. Request CT head, possible further inpatient work-up including LP. I discussed this with patient's guardian, who states that she does not want patient to undergo CT head for further diagnostics, and wants patient to be comfortable at this time. I explained to the patient's guardian that patient may have rapid decline, including potential respiratory failure and . Patient's guardian verbalizes understanding, continues to state that patient should not undergo further diagnostics, and should be treated for comfort only. Plan for admission. I discussed patient with Dr. Marie who will admit for comfort care, possible discharge to hospice depending on course. Medical Records Medical records reviewed: Yes I reviewed the patient's medical records. Lab Data Lab results reviewed: Yes I reviewed the patient's lab results. Labs: 07/25/19 15:15 Urine - Reflex from Ua Urine Culture - Pending Laboratory Tests Range/Units 07/25/19 07/25/19 07/25/19 13:24 13:50 15:15 WBC (4.4-10.8) k/cumm 10.53 RBC (4.00-5.20) m/cumm 3.89 L Hgb (12.0-15.5) g/dL 11.9 L Hct (36.0-46.0) % 38.4 MCV (80-95) fL 98.7 H MCH (27.0-33.0) pg 30.6 MCHC (32.0-36.0) g/dL 31.0 L RDW (11.7-14.6) % 14.9 H Plt Count (130-400) x1000/uL 392 MPV (8.0-11.0) fL 10.2 Immature Gran % % 0.3 Neutrophils % 88.4 Lymphocytes % 4.3 Monocytes % 6.8 Eosinophils % 0.1 Basophils % 0.1 Absolute Neutrophils (1.2-6.7) k/cumm 9.31 H Absolute Lymphocytes (1.2-3.4) k/cumm 0.45 L Absolute Monocytes (0.11-0.7) k/cumm 0.72 H Absolute Eosinophils (0.0-0.7) k/cumm 0.01 Absolute Basophils (0.0-0.2) k/cumm 0.01 Sodium (136-145) mmol/L 142 Potassium (3.5-5.1) mmol/L 4.1 Chloride (98-107) mmol/L 107 Carbon Dioxide (21.0-32.0) mmol/L 25.3 Anion Gap (3-11) mmol/L 9.7 BUN (7-18) mg/dL 28 H Creatinine (0.55-1.02) mg/dL 1.23 H Estimated GFR/1.73 m2 (mL/min/1.73m2) 42.92 Glucose (74-106) mg/dL 152 H Calcium (8.5-10.1) mg/dL 9.5 Magnesium (1.8-2.4) mg/dL 2.2 Total Bilirubin (0.2-1.0) mg/dL 0.5 AST (15-37) U/L 68 H ALT (14-59) U/L 49 Alkaline Phosphatase (46-116) U/L 180 H Total Protein (6.4-8.2) g/dL 7.1 Albumin (3.4-5.0) g/dL 2.7 L Urine Color (Yellow) Yellow Urine Clarity (Clear) Sl cloudy Urine pH (5-8) 6.5 Ur Specific [place] (1.005-1.025) 1.025 Urine Protein (Negative) mg/dL 30 H Urine Ketones (Negative) mg/dL Negative Urine Blood (Negative) Trace-intact H Urine Nitrite (Negative) Positive H Urine Bilirubin (Negative) Negative Urine Urobilinogen (Up TO 0.2) EU/dL 0.2 Ur Leukocyte Esterase (Negative) Small H Urine RBC (0-2) HPF Negative Urine WBC (0-5) HPF 20-50 H Ur Epithelial Cells (Negative) HPF Negative Urine Crystals (Negative) HPF Negative Urine Bacteria (Negative) HPF Many Urine Casts (Negative) LPF Negative Urine Mucus (Negative) Negative Urine Other (Negative) Negative Ur Culture Indicated? Yes Urine Glucose (Negative) mg/dL Negative HPI General Mode of arrival: EMS . Date/Time Provider Initiated Documentation: 07/25/19 13:21 . Limitations to Documentation: no limitations . Information obtained by: patient, RN notes reviewed and old records reviewed . HPI Narrative: Laisha Alejandra is a 74 y/o woman with baseline cognitive impairment, bipolar disorder, seizure disorder presenting to the emergency department weakness. Patient is accompanied by her guardian and also her product/industry consultant. She lives at a facility in [place]. Patient's product/industry consultant reports that typically patient is able to walk a few steps and pivot to wheelchair. Biodiesel Division Manager reports that patient was in her usual state of health yesterday without issue, but today she was unable to stand or support her weight. Biodiesel Division Manager also reports that patient was not holding her head up on her own, which is new for her. Caregiver reports that patient was able to eat as usual without issue, except that she had to have her held held up for her. Caregiver reports that patient does not seem to be in any discomfort; patient is nonverbal at baseline. Caregiver denies patient has had any recent illness, no fever/vomiting/diarrhea/shortness of breath/cough. No known trauma. Patient's guardian reports that patient is DNR/DNI. Related Data Home Medications Medication Instructions Recorded Confirmed cholecalciferol (vitamin D3) 400 unit PO BID 11/01/13 07/25/19 [Vitamin D3] lorazepam 4 mg PO HS 11/01/13 07/25/19 Diafoods Thick-It 1 ea PO 6X/DAY 01/02/17 07/25/19 calcium polycarbophil [FiberCon] 625 mg PO DAILY 02/25/19 07/20/19 Ensure 8 06/03/19 07/20/19 acetaminophen 325 mg tablet 650 mg PO Q4H PRN tab 06/08/19 07/20/19 aluminum-mag hydroxide-simethicone 5 ml PO QID PRN 06/08/19 07/20/19 400 mg-400 mg-40 mg/5 mL oral susp bacitracin zinc 500 unit/gram 1 applic TP Q12H 06/08/19 07/20/19 topical ointment bisacodyl 10 mg rectal suppository 10 mg MA DAILY PRN 06/08/19 07/20/19 bismuth subsalicylate 525 mg/15 mL 525 mg PO DIRECTED PRN ml 06/08/19 07/20/19 oral suspension calamine-zinc oxide 1 applic TP 4-6XD PRN 06/08/19 07/20/19 camphor 4.7 %-eucalyptus oil 1.2 1 applic TP BID-QID PRN 06/08/19 07/20/19 %-menthol 2.6 % topical ointment carbamide peroxide 6.5 % ear drops 5 drp OT DAILY 06/08/19 07/20/19 catheter 16 Fr #10 each 06/08/19 07/20/19 cetirizine 10 mg tablet 5 mg PO DAILY PRN 06/08/19 07/20/19 cimetidine 200 mg tablet 200 mg PO DAILY tab 06/08/19 07/25/19 clotrimazole 1 % topical cream 1 applic TP BID 06/08/19 07/20/19 dextran 70-hypromellose 1 drp OP BID ml 06/08/19 07/20/19 docusate sodium 100 mg capsule 100 mg PO BID 06/08/19 07/20/19 food supplemt, lactose-reduced ml PO DAILY ml 06/08/19 07/20/19 geraniol 5 %-soybean oil 2 % spray TP PRN 06/08/19 07/20/19 topical spray guaifenesin 100 mg/5 mL oral syrup 200 mg PO Q6H PRN 06/08/19 07/20/19 ketoconazole 2 % topical cream 1 applic TP BID 06/08/19 07/20/19 lanolin iqksqpv-mo-j.pet-ceres 1 applic TP BID gm 06/08/19 07/20/19 loperamide 2 mg tablet 2 mg PO QID PRN tab 06/08/19 07/20/19 magnesium hydroxide 400 mg/5 mL 15 ml PO DAILY PRN ml 06/08/19 07/20/19 oral suspension menthol-zinc oxide powder TP QID PRN 06/08/19 07/20/19 tbylj-vuzio-korxyre-pramoxine 3.5 1 applic TP BID-TID PRN 06/08/19 07/20/19 mg-500 unit-10,000 unit/g top oint omega-3 fatty acids 1,000 mg 1,000 mg PO BID 06/08/19 07/25/19 capsule phenylephrine 0.25 %-mineral oil 1 applic MA BID-QID PRN 06/08/19 07/20/19 14 %-petrolatm 74.9 % rectal ointment polyethylene glycol 3350 17 17 gm PO DAILY 06/08/19 07/25/19 gram/dose oral powder starch (thickening) powder PO 06/08/19 07/20/19 tolnaftate 1 % topical spray powder 1 spray TP DAILY 06/08/19 07/20/19 underpads #40 each 06/08/19 07/20/19 vitamin A and D 1 applic TP QHS PRN 06/08/19 07/25/19 Ingrezza 80 mg PO DAILY 07/14/19 07/25/19 cimetidine 200 mg PO DAILY 07/14/19 07/20/19 levetiracetam 500 mg PO BID 07/14/19 07/25/19 multivitamin 1 tab PO DAILY 07/14/19 07/25/19 oxycodone 5 mg PO Q6H PRN #10 tab 07/14/19 07/20/19 polyethylene glycol 3350 [GlycoLax] 1 PO DAILY 07/14/19 07/20/19 Previous Rx's Medication Instructions Recorded oxycodone 5 mg PO Q6H PRN #10 tab 07/14/19 Allergies Allergy/AdvReac Type Severity Reaction Status Date / Time carbamazepine [From Tegretol] Allergy Unverified 07/25/19 13:30 divalproex sodium Allergy Unverified 07/25/19 13:30 [From Depakote] haloperidol [From Haldol] Allergy Unverified 07/25/19 13:30 lithium Allergy Unverified 07/25/19 13:30 omeprazole Allergy Unverified 07/25/19 13:30 Penicillins Allergy Unverified 07/25/19 13:30 verapamil Allergy Unverified 07/25/19 13:30 General Stated Complaint: GenMedical HAKEEM: 3 Review of Systems Narrative: Constitutional: denies fevers Eyes: denies eye pain ENT: denies ear pain, dental pain, sore throat Cardiovascular: denies chest pain Respiratory: denies SOB, cough GI: denies abdominal pain, vomiting, diarrhea : denies flank pain MSK: denies back pain, neck pain, arthralgias, myalgias Skin: denies rash Neuro: denies headaches, reports weakness ROS per caregiver [facility] Medical History Aspiration pneumonia Bipolar disorder Cognitive developmental delay Contracture of hand joint (Acute) Cough (Acute) Declining mobility (Acute) Decreased urination (Acute) Dysphagia Dysuria Hx of recurrent urinary tract infection Hypercalcemia (Acute) Rash, skin (Acute) Seborrheic keratosis Seizures (Acute) Tongue swelling (Acute) Urinary retention (Acute) Surgical History egd, general endotracheal anesthesia (01/06/17) Social History Smoking/Tobacco Use Status: Never Alcohol Intake: never Drug use: Never Substance use type: does not use Current gender identity: female Additional Social history: Pt non-verbal. Unable to assess. PT lives at [facility]. Exam Narrative Exam Narrative: Constitutional: Chronically ill appearing, nonverbal, patient at baseline mental status per caregiver and guardian HENT: head atraumatic/normocephalic/normal inspection, mucous membranes moist Eyes: conjunctiva normal, sclera normal, pupils 3mm b/l Neck: no stridor, patient is not supporting her head on her own, trachea midline Chest: normal inspection Resp: normal work of breathing, LCTAB Cardio: normal rate, normal rhythm, no murmur appreciated GI: abdomen soft, non-tender, non-distended Skin: warm, dry, normal color, no rash Neuro: alert, rhythmic motion of the right arm that caregiver and guardian report as baseline for patient, flaccid paralysis bilateral lower extremities, downgoing Babinski sign bilaterally Ext: no edema of the lower extremities, DP pulses intact and symmetric, right arm in cast from recent humerus fracture with exposed digits normal color/brisk cap refill Psych: Calm Course Vital Signs Vital signs: Vital Signs Temperature 37.1 C 07/25/19 13:12 Pulse 77 07/25/19 13:12 Respiratory Rate 18 07/25/19 13:12 Pulse Oximetry 95 07/25/19 13:12 Temperature 37.1 C 07/25/19 13:12 Temperature Source Temporal Artery Scan 07/25/19 13:12 Pulse 77 07/25/19 13:12 Respiratory Rate 18 07/25/19 13:12 Pulse Oximetry 95 07/25/19 13:12 Oxygen Delivery Method Room Air 07/25/19 13:12 Oxygen Flow Rate 0 07/25/19 13:12
[2019-07-25 14:19] LABS: ALT 49 U/L (14-59); AST 68 U/L (15-37); Albumin 2.7 g/dL (3.4-5.0); Alkaline Phosphatase 180 U/L (46-116); Anion Gap 9.7 mmol/L (3-11); BUN 28 mg/dL (7-18); Bilirubin, Total 0.5 mg/dL (0.2-1.0); CO2 25.3 mmol/L (21.0-32.0); CREATININE 1.23 mg/dL (0.55-1.02); Calcium 9.5 mg/dL (8.5-10.1); Chloride 107 mmol/L (98-107); Estimated GFR 42.92 (mL/min/1.73m2); Glucose 152 mg/dL (74-106); Magnesium 2.2 mg/dL (1.8-2.4); Potassium 4.1 mmol/L (3.5-5.1); Sodium 142 mmol/L (136-145); Total Protein 7.1 g/dL (6.4-8.2)
[2019-07-25 14:28] LABS: Abs Immature Grans 0.03 k/cumm (0.0-0.09); Absolute Basophil Count 0.01 k/cumm (0.0-0.2); Absolute Eosinophil Count 0.01 k/cumm (0.0-0.7); Absolute Lymphocyte Count 0.45 k/cumm (1.2-3.4); Absolute Monocyte Count 0.72 k/cumm (0.11-0.7); Absolute Neutrophil Count 9.31 k/cumm (1.2-6.7); Basophils % 0.1; Eosinophils % 0.1; HCT 38.4 % (36.0-46.0); HGB 11.9 g/dL (12.0-15.5); Immature Grans % 0.3 %; Lymphocytes % 4.3; Mean Corpuscular Hemoglobin 30.6 pg (27.0-33.0); Mean Corpuscular Volume 98.7 fL (80-95); Mean Platelet Volume 10.2 fL (8.0-11.0); Monocytes % 6.8; Neutrophils % 88.4; Platelet Count 392 x1000/uL (130-400); RBC 3.89 m/cumm (4.00-5.20); RBC Distribution Width 14.9 % (11.7-14.6); White Blood Cell Count 10.53 k/cumm (4.4-10.8)
--- NOTE | 2019-07-25 15:00 | DI.RAD_ITS ---
EXAM: XR CHEST 2V PA LATERAL CLINICAL HISTORY: generalized weakness TECHNIQUE: 2D digital imaging was performed. COMPARISON: CHEST 2 VIEWS PA,LAT from 07/24/2016 FINDINGS: MEDIASTINUM: Normal. HEART: Normal. PULMONARY VASCULATURE: Normal. There is tortuosity of the thoracic aorta. LUNGS: Please see below PLEURAL SPACE: No pleural effusion or pneumothorax. BONE:Note is made of degenerative changes of the left glenohumeral joint. OTHER FINDINGS:There is increased opacity projected over both the right upper and left upper lobes. There is a question of whether this is external to the patient or bilateral upper lobe infiltrates. A PA view of the chest is recommended for further evaluation. IMPRESSION: Opacities projected over the upper lobes bilaterally. Extrinsic artifact versus upper lobe infiltrat es are considered. A PA view of the chest is recommended for further evaluation. DATA REPOSITORY: RADIATION DOSE DELIVERED:
[2019-07-25 15:25] LABS: Bilirubin Negative (Negative); Blood Trace-intact (Negative); Clarity Sl Cloudy (Clear); Glucose Negative (Negative); Ketones Negative (Negative); Leukocyte Esterase Small (Negative); Nitrite Positive (Negative); Specific Gravity 1.025 (1.005-1.025); Urobilinogen 0.2 EU/dL (Up TO 0.2); pH 6.5 (5-8)
[2019-07-25 15:39] LABS: WBC 20-50 HPF (0-5)
[2019-07-25 15:40] LABS: Bacteria Many HPF (Negative); C & S Indicated? Yes; Casts Negative LPF (Negative); Crystals Negative HPF (Negative); Epithelial Cells Negative HPF (Negative); Mucus Negative (Negative); Other Cells Negative (Negative); RBC Negative HPF (0-2)
[2019-07-25 16:23] VITALS: BP 97/53; PULSE 78; RESP 18; O2SAT 92
--- NOTE | 2019-07-25 16:30 | HPE_ITS ---
Date of service: 07/25/19 Time of Service: 16:30 Assessment and Plan Assessment and plan (1) Neurological muscular paralysis: Start date: 07/25/19 Start time: 16:50 Status: Acute Assessment and plan: New onset muscular paralysis acute starting this morning with patient neck progressing to feet now arms, likely respiratory status soon with the rate of progression. 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 She is unable to verbalize pain but will give nonverbal cues such as tearing up or grimmicing. She is able to swallow at this time. Differentials include GB syndrome myasthenia, other. Monitor comfort status, allow food at th is time until swallowing is affected then make NPO. Alert at this time, continue to monitor. (2) Comfort measures only status: Start date: 07/25/19 Start time: 16:54 Status: Acute Assessment and plan: PLANT NURSERY WORKER, see above. History of Present Illness History of Present Illness Chief Complaint: Muscular weakness Narrative: 74 y.o female with PMH of seizures, bipolar disorder, cognitive impairment admitted to [facility] m/s obs after presenting to the ED with sudden onset of weakness to neck and bilateral lower extremities. She lives in a home with caregivers, per caregivers she was ambulatory this morning but unable to hold her head up. They were able to get her to walk to the shower chair by this afternoon she is no longer able to move her legs or hold her head up. In the ED her guardian decided to make her PLANT NURSERY WORKER. She is flaccid to both lower extremities, she was able to move her left arm upon arrival however now she can not. ED provider discussed case with Dr. Dempsey who states differential Guillain-Moccasin, myasthenia, other. Case was discussed with guardian about progression of disease and that this could be something that she overcomes, caregiver well informed and has decided that she does not want patient to suffer any pain, as she would not understand what is going on and caregiver is concerned this would cause more harm to patient. She will be admitted to m/s obs for comfort measure. Patient is nonverbal and unable to verbalize pain. During evaluation she was tearing up, according to caregivers this is not normal but this does indicate pain, therefore she is being placed on a morphine drip. She is now unable to move extremities and her breathing appears labored, both bilateral extremities are flaccid without babinski reflex. No reflex to patella. She does enjoy eating and caregivers ask that she be able to eat until she is at risk for aspiration. At this time the weakness has not affected her swallowing. She will have regular diet with pureed thick and honey thickened liquids. Consider hospice tomorrow for patient for home if progression has not gotten worse. Review of Systems All systems reviewed & are unremarkable except as noted in HPI and below PFSH Medical History Aspiration pneumonia Bipolar disorder Cognitive developmental delay Contracture of hand joint (Acute) Cough (Acute) Declining mobility (Acute) Decreased urination (Acute) Dysphagia Dysuria Hx of recurrent urinary tract infection Hypercalcemia (Acute) Rash, skin (Acute) Seborrheic keratosis Seizures (Acute) Tongue swelling (Acute) Urinary retention (Acute) Surgical History egd, general endotracheal anesthesia (01/06/17) Social History Smoking/Tobacco Use Status: Never Alcohol Intake: never Drug use: Never Substance use type: does not use Current gender identity: female Additional Social history: Pt non-verbal. Unable to assess. PT lives at [facility]. Meds Home Medications and Allergies Home Medications Medication Instructions Recorded Confirmed Type cholecalciferol (vitamin D3) 400 unit PO BID 11/01/13 07/25/19 History [Vitamin D3] lorazepam 4 mg PO HS 11/01/13 07/25/19 History Diafoods Thick-It 1 ea PO 6X/DAY 01/02/17 07/25/19 History calcium polycarbophil [FiberCon] 625 mg PO DAILY 02/25/19 07/20/19 History Ensure 8 06/03/19 07/20/19 History acetaminophen 325 mg tablet 650 mg PO Q4H PRN tab 06/08/19 07/20/19 History aluminum-mag hydroxide-simethicone 5 ml PO QID PRN 06/08/19 07/20/19 History 400 mg-400 mg-40 mg/5 mL oral susp bacitracin zinc 500 unit/gram 1 applic TP Q12H 06/08/19 07/20/19 History topical ointment bisacodyl 10 mg rectal suppository 10 mg GA DAILY PRN 06/08/19 07/20/19 History bismuth subsalicylate 525 mg/15 mL 525 mg PO DIRECTED PRN ml 06/08/19 07/20/19 History oral suspension calamine-zinc oxide 1 applic TP 4-6XD PRN 06/08/19 07/20/19 History camphor 4.7 %-eucalyptus oil 1.2 1 applic TP BID-QID PRN 06/08/19 07/20/19 H istory %-menthol 2.6 % topical ointment carbamide peroxide 6.5 % ear drops 5 drp OT DAILY 06/08/19 07/20/19 History catheter 16 Fr #10 each 06/08/19 07/20/19 History cetirizine 10 mg tablet 5 mg PO DAILY PRN 06/08/19 07/20/19 History cimetidine 200 mg tablet 200 mg PO DAILY tab 06/08/19 07/25/19 History clotrimazole 1 % topical cream 1 applic TP BID 06/08/19 07/20/19 History dextran 70-hypromellose 1 drp OP BID ml 06/08/19 07/20/19 History docusate sodium 100 mg capsule 100 mg PO BID 06/08/19 07/20/19 History food supplemt, lactose-reduced ml PO DAILY ml 06/08/19 07/20/19 History geraniol 5 %-soybean oil 2 % spray TP PRN 06/08/19 07/20/19 History topical spray guaifenesin 100 mg/5 mL oral syrup 200 mg PO Q6H PRN 06/08/19 07/20/19 History ketoconazole 2 % topical cream 1 applic TP BID 06/08/19 07/20/19 History lanolin scjzhuk-xr-t.pet-ceres 1 applic TP BID gm 06/08/19 07/20/19 History loperamide 2 mg tablet 2 mg PO QID PRN tab 06/08/19 07/20/19 History magnesium hydroxide 400 mg/5 mL 15 ml PO DAILY PRN ml 06/08/19 07/20/19 History oral suspension menthol-zinc oxide powder TP QID PRN 06/08/19 07/20/19 History ywsil-jdwaw-ciiazjo-pramoxine 3.5 1 applic TP BID-TID PRN 06/08/19 07/20/19 History mg-500 unit-10,000 unit/g top oint omega-3 fatty acids 1,000 mg 1,000 mg PO BID 06/08/19 07/25/19 History capsule phenylephrine 0.25 %-mineral oil 1 applic GA BID-QID PRN 06/08/19 07/20/19 History 14 %-petrolatm 74.9 % rectal ointment polyethylene glycol 3350 17 17 gm PO DAILY 06/08/19 07/25/19 History gram/dose oral powder starch (thickening) powder PO 06/08/19 07/20/19 History tolnaftate 1 % topical spray powder 1 spray TP DAILY 06/08/19 07/20/19 History underpads #40 each 06/08/19 07/20/19 History vitamin A and D 1 applic TP QHS PRN 06/08/19 07/25/19 History Ingrezza 80 mg PO DAILY 07/14/19 07/25/19 History cimetidine 200 mg PO DAILY 07/14/19 07/20/19 History levetiracetam 500 mg PO BID 07/14/19 07/25/19 History multivitamin 1 tab PO DAILY 07/14/19 07/25/19 History oxycodone 5 mg PO Q6H PRN #10 tab 07/14/19 07/20/19 Rx polyethylene glycol 3350 [GlycoLax] 1 PO DAILY 07/14/19 07/20/19 History Allergies Allergy/AdvReac Type Severity Reaction Status Date / Time carbamazepine [From Tegretol] Allergy Unverified 07/25/19 13:30 divalproex sodium Allergy Unverified 07/25/19 13:30 [From Depakote] haloperidol [From Haldol] Allergy Unverified 07/25/19 13:30 lithium Allergy Unverified 07/25/19 13:30 omeprazole Allergy Unverified 07/25/19 13:30 Penicillins Allergy Unverified 07/25/19 13:30 verapamil Allergy Unverified 07/25/19 13:30 Exam Narrative Exam Narrative: Elderly female nonverbal, alert, unable to hold head up. Bilateral flaccid LE with no reflexs or babinski. Left arm that is now flaccid, right arm in cast, hand swollen. Tearing up, unable to verbalize needs. Lying in bed with family at bedside. Lung sounds clear, Breathing appears to be slightly labored. HR Regular. Results Labs Result diagrams: 07/25/19 13:24 07/25/19 13:50 Labs: Laboratory Results - last 24 hr 07/25/19 07/25/19 07/25/19 13:24 13:50 15:15 WBC 10.53 RBC 3.89 L Hgb 11.9 L Hct 38.4 MCV 98.7 H MCH 30.6 MCHC 31.0 L RDW 14.9 H Plt Count 392 MPV 10.2 Immature Gran % 0.3 Neutrophils % 88.4 Lymphocytes % 4.3 Monocytes % 6.8 Eosinophils % 0.1 Basophils % 0.1 Absolute Neutrophils 9.31 H Absolute Lymphocytes 0.45 L Absolute Monocytes 0.72 H Absolute Eosinophils 0.01 Absolute Basophils 0.01 Sodium 142 Potassium 4.1 Chloride 107 Carbon Dioxide 25.3 Anion Gap 9.7 BUN 28 H Creatinine 1.23 H Estimated GFR/1.73 m2 42.92 Glucose 152 H Calcium 9.5 Magnesium 2.2 Total Bilirubin 0.5 AST 68 H ALT 49 Alkaline Phosphatase 180 H Total Protein 7.1 Albumin 2.7 L Urine Color Yellow Urine Clarity Sl cloudy Urine pH 6.5 Ur Specific [place] 1.025 Urine Protein 30 H Urine Ketones Negative Urine Blood Trace-intact H Urine Nitrite Positive H Urine Bilirubin Negative Urine Urobilinogen 0.2 Ur Leukocyte Esterase Small H Urine RBC Negative Urine WBC 20-50 H Ur Epithelial Cells Negative Urine Crystals Negative Urine Bacteria Many Urine Casts Negative Urine Mucus Negative Urine Other Negative Ur Culture Indicated? Yes Urine Glucose Negative Last Vital Signs Temp 37.1 C 07/25/19 13:12 Pulse 78 07/25/19 16:23 Resp 18 07/25/19 16:23 BP 97/53 L 07/25/19 16:23 Pulse Ox 92 L 07/25/19 16:23
--- NOTE | 2019-07-25 17:17 | DI.VRAD_ITS ---
PROCEDURE INFORMATION: Exam: XR Chest, 2 Views Exam date and time: 07/25/2019 5:04 PM Age: 74 years old Clinical indication: Other: Generalized weakness TECHNIQUE: Imaging protocol: XR of the chest Views: 2 views. COMPARISON: CR CHEST 2 VIEWS PA,LAT 07/24/2016 8:24 PM FINDINGS: Lungs: Questionable minimal infiltrate in the left upper lobe. There appears to be some scarring in the right upper lobe. Pleural space: Unremarkable. No pleural effusion. No pneumothorax. Heart/Mediastinum: Unremarkable. No cardiomegaly. Vasculature: Moderate ectasia of the thoracic aorta is again noted similar to July 24, 2016. 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 IMPRESSION: Possible small pneumonic infiltrate in the left upper lobe although this could just be normal vasculature. Dictated and Authenticated by: Homero Wynne MD. Ordering:JUN Muñoz MD
[2019-07-25] MEDS: Scopolamine 1 MG/3 DAYS PATCH TD (17:24)
[2019-07-25] MEDS: Normal Saline Flush 10 ML SYR IVP (17:25)
[2019-07-25] MEDS: MORPHine 250 MG in Normal Saline 245 ML IV (17:25)
[2019-07-25 22:35] LABS: Ionized Calcium 1.21 mmol/L (1.12-1.32)
[2019-07-26 02:47] VITALS: TEMP 39.8
[2019-07-26] MEDS: Acetaminophen 500 MG TAB PO (02:47)
--- NOTE | 2019-07-26 11:15 | PDOC.CMIN ---
- If Service Date Differs Date of service: 07/26/19 Time of Service: 11:15 Care Management Initial Assess REASON FOR HOSPITALIZATION:: Muscular Weakness PAST MEDICAL HISTORY/PAST SURGICAL HISTORY:: Medical History . Aspiration pneumonia. Bipolar disorder. Cognitive developmental delay. Contracture of hand joint (Acute). Cough (Acute). Declining mobility (Acute). Decreased urination (Acute). Dysphagia. Dysuria. Hx of recurrent urinary tract infection. Hypercalcemia (Acute). Rash, skin (Acute). Seborrheic keratosis. Seizures (Acute). Tongue swelling (Acute). Urinary retention (Acute). Surgical History . egd, general endotracheal anesthesia (01/06/17) PREVIOUS FUNCTIONAL STATUS/SOCIAL/FAMILY SUPPORTS:: Laisha lives at [facility], [facility], in [place], [place]. She is cognitively impaired and has a guardian who is also her cousin ( Pinky Gómez [phone]). Laisha requires total care. She is able to get OOB with max 2 assist, and sit in a chair. In addition to Pinky, Laisha has several other cousins. Pinky's son Aakash Gómez is co-guardian. All of her cousins are very supportive. CURRENT FUNCTIONAL STATUS:: Laisha was lying in bed with her guardian, Pinky Gómez, by her side. Laisha is non verbal, so was unable to communicate directly with CM. CM asked Pinky how Laisha was doing, and if her pain has been well controlled. Pinky responded that she feels that she is not in pain, and she is doing well, despite her inability to move her lower extremities. 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 If she begins to improve, she will return to [facility] with Hospice support, at which time a care team meeting will be arranged by CM in order to support the caregivers with the transition. CM will continue to follow. ADVANCE DIRECTIVES:: [facility]ST on file. Guardian is Pinky Gómez, also her cousin. Has patient been provided with information about the portal?: No Did the patient sign up for the portal?: No CODE STATUS:: DNR/DNI INSURANCE COVERAGE / FINANCIAL ISSUES:: [facility]/ [place] CURRENT HOME/COMMUNITY SERVICES/EQUIPMENT:: Laisha lives at [facility], which provides 08/12 care. PRIMARY CARE PHYSICIAN:: Mercedez Vazquez POTENTIAL DISCHARGE NEEDS:: Laisha may need Hospice support if she returns to [facility]. PATIENT/FAMILY EDUCATION NEEDS:: Review discharge instructions regarding medications, discuss goals of care. ANTICIPATED BARRIERS TO DISCHARGE:: None identified at this time. TRANSPORTATION:: TBD by disposition PLAN:: Per provider, Laisha may pass during this admission. If Laisha begins to improve she may return to [facility] with Hospice support. She would transport via ambulance. CM will continue to follow.
--- NOTE | 2019-07-26 11:32 | PHA.ADMREV ---
Pharmacy Clinical Review - Admission Clinical Review (Last Reviewed 07/25/19 @ 16:46 by Shaista Wolf NP) Neurological muscular paralysis (Acute) Comfort measures only status (Acute) carbamazepine [From Tegretol] Allergy (Unverified 07/25/19 13:30) divalproex sodium [From Depakote] Allergy (Unverified 07/25/19 13:30) haloperidol [From Haldol] Allergy (Unverified 07/25/19 13:30) lithium Allergy (Unverified 07/25/19 13:30) omeprazole Allergy (Unverified 07/25/19 13:30) Penicillins Allergy (Unverified 07/25/19 13:30) verapamil Allergy (Unverified 07/25/19 13:30) Height 5 ft 6.14 in - Renal Dosing Renal Dosing: BUN 28 mg/dL (7-18) H 07/25/19 13:50 Creatinine 1.23 mg/dL (0.55-1.02) H 07/25/19 13:50 Medications needing adjustments: N/A (current meds okay) - Anticoagulation Anticoagulation: Hgb 11.9 g/dL (12.0-15.5) L 07/25/19 13:24 Hct 38.4 % (36.0-46.0) 07/25/19 13:24 Plt Count 392 x1000/uL (130-400) 07/25/19 13:24 Creatinine 1.23 mg/dL (0.55-1.02) H 07/25/19 13:50 DVT Prohphylaxis: 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) Therapeutic Anticoagulation: N/A - Opiate Usage Evaluate Pain Scale/Pains Meds: Reviewed Scheduled Bowel Reg ordered if on Opiates?: No (PRN med ordered) - Relevant Labs Sodium 142 mmol/L (136-145) 07/25/19 13:50 Potassium 4.1 mmol/L (3.5-5.1) 07/25/19 13:50 Chloride 107 mmol/L (98-107) 07/25/19 13:50 Magnesium 2.2 mg/dL (1.8-2.4) 07/25/19 13:50 Electrolytes, C-Reactive P, ESR: Reviewed - Antimicrobial Stewardship Antibiotic appropriateness: N/A Surgical Abx d/c within 24 hr: N/A Culture review/Resistance: N/A - DM Control DM Control: Glucose 152 mg/dL (74-106) H 07/25/19 13:50 Insulin Dosing: N/A - Heart Failure/DC EF%, LOLLY's, B-Blockers, Diuretics: N/A - BP Control If elevated: N/A - QTc Review If Elevated: N/A - IV to PO Switch IV Medications: Reviewed - Home Meds Home Med List reviewed: Reviewed (home med list not updated on admission; 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
--- NOTE | 2019-07-26 15:12 | NS.NUTBLAN_ITS ---
Date of service: 07/26/19 Time of Service: 15:12 Nutritional Consult ASSESSMENT: 74 year old female admitted with fracture of humerus and overall decline. PMH: neurological muscular paralysis, cognitive delay, non verbal. 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 Laisha is following Puree diet with extremely thick liquids due to ongonig dysphagia. Met with Laisha, rolly and caregiver today. Laisha is doing better today, had 100% of her lunch, eyes open. Caregiver reports they provide puree and nectar thick at home. Labs indicate elevated BUN and blood sugars, IV hydration improving labs. No weight available, appears well nourished. At this time she appears to be meeting her nutrient and fluid needs. She is at risk for dehydration in view of thickened liquids but nursing reports she is doing well with fluids today. Will continue to follow, encourage fluids throughout the day and adjust meal plan as needed. NUTRITIONAL DIAGNOSIS: Dysphagia INTERVENTION: Puree Diet/Extremely thick liquids MONITORING AND EVALUATION: po intake, weight, labs Time Spent in Nutritional Counseling and Treatment: 10 min spent face to face
--- NOTE | 2019-07-26 15:37 | CHAPLAIN ---
I spoke with Laisha and her guardian, who is also Laisha's cousin. (She is also a [employer] sales representative.) Laisha is not verbal. She was in bed, with a purple cast on her arm. Her cousin said they are waiting for test results to see what is going on, but are considering comfort measures, although she said Laisha has bounced back in the past and surprised people. I offered Laisha a prayer shawl, and asked her cousin if there's anything else we can do do make Laisha more comfortable, (music, etc.). She said Laisha likes to watch [employer] and Dorian Kalt[place], so they were waiting for those to come on the tv channel they had on.
--- NOTE | 2019-07-26 15:59 | PGE_ITS ---
Date of Service Date of service: 07/26/19 Time of Service: 16:00 Assessment and Plan Assessment and plan (1) Neurological muscular paralysis: Status: Acute Assessment and plan: New onset muscular paralysis seems to be slightly resolving. 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 She is able to swallow some at this time but po intake poor. Differentials include GB syndrome myasthenia, other. Monitor comfort status, allow food at this time until swallowing is affected then make NPO. Alert at this time, continue to monitor. (2) Comfort measures only status: Status: Acute Subjective Subjective Interval history since last seen: guardian has been at bedside and reports that patient has appeared comfortable all day. Exam Narrative Exam Narrative: Elderly female nonverbal, alert, now able to hold head up. Bilateral flaccid LE with no reflexs or babinski but withdraws to pain on right. Left arm is now flexed with involuntary movement, right arm in cast and flaccid, hand swollen. Tracks me with her eyes throughout the room, unable to verbalize needs. Lying in bed with guardian at bedside. respirations even and unlabored. HR Regular. abdomen is benign with normal bowel sounds and soft. Objective Objective Clinical Data: Abnormal lab results 07/25/19 Range/Units 15:15 Urine Protein 30 H (Negative) mg/dL Urine Blood Trace-intact H (Negative) Urine Nitrite Positive H (Negative) Ur Leukocyte Esterase Small H (Negative) Urine WBC 20-50 H (0-5) HPF Vital Signs Temperature 39.8 C H 07/26/19 02:47 Temperature Source Temporal Artery Scan 07/25/19 13:12 Pulse 78 07/25/19 16:23 Pulse Rhythm Regular 07/25/19 17:13 Respiratory Rate 18 07/25/19 16:23 Respiratory Effort Non-Labored 07/26/19 09:50 Respiratory Depth Normal 07/26/19 09:50 Respiratory Pattern Normal 07/26/19 09:50 Blood Pressure 97/53 L 07/25/19 16:23 Blood Pressure Mean 67 07/25/19 16:23 Pulse Oximetry 92 L 07/25/19 16:23 Oxygen Delivery Method Room Air 07/25/19 16:23 Oxygen Flow Rate 0 07/25/19 16:23 Intake & Output 07/25/19 07/26/19 07/26/19 23:59 11:59 23:59 Intake Total 262.259 / 262.259 134.033 / 314.033 180 / 314.033 Output Total 0 / 0 Balance 262.259 / 262.259 134.033 / 314.033 180 / 314.033 Intake: IV 12.259 / 12.259 14.033 / 14.033 Oral 250 / 250 120 / 300 180 / 300 Output: Urine 0 / 0 Other: Comment pt has not voided this shift Laboratory Results WBC 10.53 k/cumm (4.4-10.8) 07/25/19 13:24 RBC 3.89 m/cumm (4.00-5.20) L 07/25/19 13:24 Hgb 11.9 g/dL (12.0-15.5) L 07/25/19 13:24 Hct 38.4 % (36.0-46.0) 07/25/19 13:24 MCV 98.7 fL (80-95) H 07/25/19 13:24 MCH 30.6 pg (27.0-33.0) 07/25/19 13:24 MCHC 31.0 g/dL (32.0-36.0) L 07/25/19 13:24 RDW 14.9 % (11.7-14.6) H 07/25/19 13:24 Plt Count 392 x1000/uL (130-400) 07/25/19 13:24 MPV 10.2 fL (8.0-11.0) 07/25/19 13:24 Immature Gran % 0.3 % 07/25/19 13:24 Neutrophils % 88.4 07/25/19 13:24 Lymphocytes % 4.3 07/25/19 13:24 Monocytes % 6.8 07/25/19 13:24 Eosinophils % 0.1 07/25/19 13:24 Basophils % 0.1 07/25/19 13:24 Absolute Neutrophils 9.31 k/cumm (1.2-6.7) H 07/25/19 13:24 Absolute Lymphocytes 0.45 k/cumm (1.2-3.4) L 07/25/19 13:24 Absolute Monocytes 0.72 k/cumm (0.11-0.7) H 07/25/19 13:24 Absolute Eosinophils 0.01 k/cumm (0.0-0.7) 07/25/19 13:24 Absolute Basophils 0.01 k/cumm (0.0-0.2) 07/25/19 13:24 Sodium 142 mmol/L (136-145) 07/25/19 13:50 Potassium 4.1 mmol/L (3.5-5.1) 07/25/19 13:50 Chloride 107 mmol/L (98-107) 07/25/19 13:50 Carbon Dioxide 25.3 mmol/L (21.0-32.0) 07/25/19 13:50 Anion Gap 9.7 mmol/L (3-11) 07/25/19 13:50 BUN 28 mg/dL (7-18) H 07/25/19 13:50 Creatinine 1.23 mg/dL (0.55-1.02) H 07/25/19 13:50 Estimated GFR/1.73 m2 42.92 (mL/min/1.73m2) 07/25/19 13:50 Glucose 152 mg/dL (74-106) H 07/25/19 13:50 Calcium 9.5 mg/dL (8.5-10.1) 07/25/19 13:50 Ionized Calcium 1.21 mmol/L (1.12-1.32) 07/25/19 14:15 Magnesium 2.2 mg/dL (1.8-2.4) 07/25/19 13:50 Total Bilirubin 0.5 mg/dL (0.2-1.0) 07/25/19 13:50 AST 68 U/L (15-37) H 07/25/19 13:50 ALT 49 U/L (14-59) 07/25/19 13:50 Alkaline Phosphatase 180 U/L (46-116) H 07/25/19 13:50 Total Protein 7.1 g/dL (6.4-8.2) 07/25/19 13:50 Albumin 2.7 g/dL (3.4-5.0) L 07/25/19 13:50 Urine Color Yellow (Yellow) 07/25/19 15:15 Urine Clarity Sl cloudy (Clear) 07/25/19 15:15 Urine pH 6.5 (5-8) 07/25/19 15:15 Ur Specific [place] 1.025 (1.005-1.025) 07/25/19 15:15 Urine Protein 30 mg/dL (Negative) H 07/25/19 15:15 Urine Ketones Negative mg/dL (Negative) 07/25/19 15:15 Urine Blood Trace-intact (Negative) H 07/25/19 15:15 Urine Nitrite Positive (Negative) H 07/25/19 15:15 Urine Bilirubin Negative (Negative) 07/25/19 15:15 Urine Urobilinogen 0.2 EU/dL (Up TO 0.2) 07/25/19 15:15 Ur Leukocyte Esterase Small (Negative) H 07/25/19 15:15 Urine RBC Negative HPF (0-2) 07/25/19 15:15 Urine WBC 20-50 HPF (0-5) H 07/25/19 15:15 Ur Epithelial Cells Negative HPF (Negative) 07/25/19 15:15 Urine Crystals Negative HPF (Negative) 07/25/19 15:15 Urine Bacteria Many HPF (Negative) 07/25/19 15:15 Urine Casts Negative LPF (Negative) 07/25/19 15:15 Urine Mucus Negative (Negative) 07/25/19 15:15 Urine Other Negative (Negative) 07/25/19 15:15 Ur Culture Indicated? Yes 07/25/19 15:15 Urine Glucose Negative mg/dL (Negative) 07/25/19 15:15
[2019-07-26] MEDS: LORazepam 2 MG/ML VIAL 1 MG IVP (16:50)
[2019-07-26] MEDS: Normal Saline Flush 10 ML SYR IVP (16:51)
--- NOTE | 2019-07-27 08:52 | W.PM.PROGNOT ---
Date of Service Date of service: 07/27/19 Time of Service: 08:53 Assessment and Plan Assessment and plan (1) Neurological muscular paralysis: Status: Acute Assessment and plan: patient is now unresponsive and in no distress on morphine drip. She has produced no urine. We will titrate morphine if needed. continue comfort measures only. DNR/DNI Subjective Subjective Interval history since last seen: patient is unresponsive and resting comfortably on morphine drip. Exam Const General: frail appearing and ill appearing acutely and chronically Nutritional Appearance: average body habitus Orientation: obtunded HENMT Head: normal to inspection and atraumatic Resp Effort & Inspection: decreased respiratory effort Neuro General: obtunded Objective Objective Clinical Data: Abnormal lab results 07/25/19 Range/Units 15:15 Urine Protein 30 H (Negative) mg/dL Urine Blood Trace-intact H (Negative) Urine Nitrite Positive H (Negative) Ur Leukocyte Esterase Small H (Negative) Urine WBC 20-50 H (0-5) HPF Vital Signs Temperature 39.8 C H 07/26/19 02:47 Temperature Source Temporal Artery Scan 07/25/19 13:12 Pulse 78 07/25/19 16:23 Pulse Rhythm Regular 07/25/19 17:13 Respiratory Rate 18 07/25/19 16:23 Respiratory Effort Non-Labored 07/27/19 04:15 Respiratory Depth Normal 07/27/19 04:15 Respiratory Pattern Normal 07/27/19 04:15 Blood Pressure 97/53 L 07/25/19 16:23 Blood Pressure Mean 67 07/25/19 16:23 Pulse Oximetry 92 L 07/25/19 16:23 Oxygen Delivery Method Room Air 07/25/19 16:23 Oxygen Flow Rate 0 07/25/19 16:23 Intake & Output 07/26/19 07/26/19 07/27/19 11:59 23:59 11:59 Intake Total 134.033 / 347.449 213.416 / 347.449 11.76 Output Total 0 / 0 0 / 0 Balance 134.033 / 347.449 213.416 / 347.449 11.76 Intake: IV 14.033 / 47.449 33.416 / 47.449 11.76.767 Oral 120 / 300 180 / 300 Output: Urine 0 / 0 0 / 0 Other: Comment no urine noted to diaper. Charge Nurse aware of no voids no urine noted to diaper. Laboratory Results WBC 10.53 k/cumm (4.4-10.8) 07/25/19 13:24 RBC 3.89 m/cumm (4.00-5.20) L 07/25/19 13:24 Hgb 11.9 g/dL (12.0-15.5) L 07/25/19 13:24 Hct 38.4 % (36.0-46.0) 07/25/19 13:24 MCV 98.7 fL (80-95) H 07/25/19 13:24 MCH 30.6 pg (27.0-33.0) 07/25/19 13:24 MCHC 31.0 g/dL (32.0-36.0) L 07/25/19 13:24 RDW 14.9 % (11.7-14.6) H 07/25/19 13:24 Plt Count 392 x1000/uL (130-400) 07/25/19 13:24 MPV 10.2 fL (8.0-11.0) 07/25/19 13:24 Immature Gran % 0.3 % 07/25/19 13:24 Neutrophils % 88.4 07/25/19 13:24 Lymphocytes % 4.3 07/25/19 13:24 Monocytes % 6.8 07/25/19 13:24 Eosinophils % 0.1 07/25/19 13:24 Basophils % 0.1 07/25/19 13:24 Absolute Neutrophils 9.31 k/cumm (1.2-6.7) H 07/25/19 13:24 Absolute Lymphocytes 0.45 k/cumm (1.2-3.4) L 07/25/19 13:24 Absolute Monocytes 0.72 k/cumm (0.11-0.7) H 07/25/19 13:24 Absolute Eosinophils 0.01 k/cumm (0.0-0.7) 07/25/19 13:24 Absolute Basophils 0.01 k/cumm (0.0-0.2) 07/25/19 13:24 Sodium 142 mmol/L (136-145) 07/25/19 13:50 Potassium 4.1 mmol/L (3.5-5.1) 07/25/19 13:50 Chloride 107 mmol/L (98-107) 07/25/19 13:50 Carbon Dioxide 25.3 mmol/L (21.0-32.0) 07/25/19 13:50 Anion Gap 9.7 mmol/L (3-11) 07/25/19 13:50 BUN 28 mg/dL (7-18) H 07/25/19 13:50 Creatinine 1.23 mg/dL (0.55-1.02) H 07/25/19 13:50 Estimated GFR/1.73 m2 42.92 (mL/min/1.73m2) 07/25/19 13:50 Glucose 152 mg/dL (74-106) H 07/25/19 13:50 Calcium 9.5 mg/dL (8.5-10.1) 07/25/19 13:50 Ionized Calcium 1.21 mmol/L (1.12-1.32) 07/25/19 14:15 Magnesium 2.2 mg/dL (1.8-2.4) 07/25/19 13:50 Total Bilirubin 0.5 mg/dL (0.2-1.0) 07/25/19 13:50 AST 68 U/L (15-37) H 07/25/19 13:50 ALT 49 U/L (14-59) 07/25/19 13:50 Alkaline Phosphatase 180 U/L (46-116) H 07/25/19 13:50 Total Protein 7.1 g/dL (6.4-8.2) 07/25/19 13:50 Albumin 2.7 g/dL (3.4-5.0) L 07/25/19 13:50 Urine Color Yellow (Yellow) 07/25/19 15:15 Urine Clarity Sl cloudy (Clear) 07/25/19 15:15 Urine pH 6.5 (5-8) 07/25/19 15:15 Ur Specific [place] 1.025 (1.005-1.025) 07/25/19 15:15 Urine Protein 30 mg/dL (Negative) H 07/25/19 15:15 Urine Ketones Negative mg/dL (Negative) 07/25/19 15:15 Urine Blood Trace-intact (Negative) H 07/25/19 15:15 Urine Nitrite Positive (Negative) H 07/25/19 15:15 Urine Bilirubin Negative (Negative) 07/25/19 15:15 Urine Urobilinogen 0.2 EU/dL (Up TO 0.2) 07/25/19 15:15 Ur Leukocyte Esterase Small (Negative) H 07/25/19 15:15 Urine RBC Negative HPF (0-2) 07/25/19 15:15 Urine WBC 20-50 HPF (0-5) H 07/25/19 15:15 Ur Epithelial Cells Negative HPF (Negative) 07/25/19 15:15 Urine Crystals Negative HPF (Negative) 07/25/19 15:15 Urine Bacteria Many HPF (Negative) 07/25/19 15:15 Urine Casts Negative LPF (Negative) 07/25/19 15:15 Urine Mucus Negative (Negative) 07/25/19 15:15 Urine Other Negative (Negative) 07/25/19 15:15 Ur Culture Indicated? Yes 07/25/19 15:15 Urine Glucose Negative mg/dL (Negative) 07/25/19 15:15
[2019-07-27] MEDS: Acetaminophen 650 MG SUPP PR (13:29)
[2019-07-27 13:32] LABS: Levetiracetam 22.2 mcg/mL
--- NOTE | 2019-07-27 14:35 | CHAPLAIN ---
I visited with Laisha's guardian/cousin Nadine this morning. She believes that Laisha is comfortable and nearing the end of her life. This afternoon Laisha was not responsive to Pat speaking directly to her. Nadine said that Laisha was the only child of her parents and that they were very devoted to Laisha and her care. For the past several years, Laisha has lived in a fdc in [place]. She and her parents were members of the [facility], and the offset second press operator there is aware that Laisha is here. Nadine and I prayed with Laisha.
--- NOTE | 2019-07-27 15:39 | CMPROGNOTE_ITS ---
- If Service Date Differs Date of service: 07/27/19 Time of Service: 15:39 Care Management Progress Note S/O: Laisha was lying in bed when CM met with her. Her caregiver was not in the room. She is unresponsive at this time. Per report, she continues to be on a morphine drip with no distress, and is not producing urine. Per MD, she will most likely pass away during this admission. CM discussed the plan with her caregiver. CM will continue to follow. A: Laisha is a 74 year old female admitted to [facility] on 07/25/19 with neurological muscular paralysis. P: Per provider, Laisha may pass during this admission. If Laisha begins to improve she may return to [place] with Hospice support. She would transport via ambulance. CM will continue to follow and support pt and family.
--- NOTE | 2019-07-28 08:42 | W.PM.DDS ---
Date of service: 07/27/19 Time of Service: 23:00 Discharge Sum: Diag Contributing Factors (1) Neurological muscular paralysis:
[2019-07-28 18:21] LABS: 1,25-Dihydroxyvitamin D 41 pg/mL (18-78)
== END 2019-07-27 23:05 | disposition expired | DRG 93 ==
LOC: ER 16:38 → MS 07-26 11:26
PROVIDERS: Admitting Provider Internal Medicine; Emergency Provider Student in an Organized Health Care Education/Training Program; PCP Nurse Practitioner Family; Visit Provider Internal Medicine
DX: G72.89 Other specified myopathies (principal); Z51.5 Encounter for palliative care; F31.9 Bipolar disorder, unspecified; G31.84 Mild cognitive impairment of uncertain or unknown etiology; R13.10 Dysphagia, unspecified; Z87.440 Personal history of urinary (tract) infections; L82.1 Other seborrheic keratosis; R56.9 Unspecified convulsions; Z66 Do not resuscitate
CPT/HCPCS: 36415; 80053; 87077; 99223; 99232; 99238; 99285; 71046; 80177; 81003; 81015; 82330; 82652; 83735; 85025; 87086; 87186; 99220; 99284; G0378; J2060